=== PATIENT | female | born 1940 | race Caucasian/White ===

== ENCOUNTER 2022-06-14 17:39 | Inpatient (IN) | payer SELFPAY ==
[2022-06-14 17:58] VITALS: BMI 30.1
[2022-06-14 20:28] LABS: BASO % 0.6 % (0-2.0); EOS % 3.4 % (0-4.5); HEMATOCRIT 36.8 % (32.4-45.2); HEMOGLOBIN 12.2 GM/dL (10.7-15.3); LYMPH % 16.4 % (8-40); MCH 30.1 pg (25.7-33.7); MCHC 33.2 g/dl (32.0-36.0); MEAN CELL VOLUME 90.6 fl (80-96); MEAN PLT VOLUME 6.6 fl (7.5-11.1); MONO % 12.6 % (3.8-10.2); PLATELET COUNT 306 10^3/uL (134-434); RBC 4.07 M/mm3 (3.60-5.2); RDW 14.9 % (11.6-15.6); WHITE BLOOD COUNT 7.8 K/mm3 (4.0-10.0)
[2022-06-14 20:35] LABS: INR 0.95 (0.83-1.09); PROTHROMBIN TIME (PATIENT) 10.9 SEC (9.7-13.0)
[2022-06-14 20:37] LABS: ACTIVATED PTT 35.9 SECONDS (25.2-36.5)
[2022-06-14 20:49] LABS: CALCIUM 8.7 mg/dL (8.5-10.1)
[2022-06-14 20:50] LABS: ALBUMIN 3.6 g/dl (3.4-5.0)
[2022-06-14 20:52] LABS: PHOSPHOROUS 5.2 mg/dL (2.5-4.9)
[2022-06-14 20:53] LABS: CREATININE 5.2 mg/dL (0.55-1.3)
[2022-06-14 20:54] LABS: BILIRUBIN,TOTAL 0.3 mg/dL (0.2-1); TOT PROT 8.2 g/dl (6.4-8.2)
[2022-06-14] MEDS ORDERED: CALCIUM GLUC IN NACL, ISO-OSM 1 GM/50 ML BAG IVPB ONE ×2 (21:17→22:33)
[2022-06-14] MEDS ORDERED: SODIUM ZIRCONIUM CYCLOSILICATE (LOKELMA) 5 GM PACKET PO ONE (22:17)
[2022-06-14] MEDS ORDERED: SODIUM ZIRCONIUM CYCLOSILICATE (LOKELMA) 5 GM PACKET ONE (22:32)
[2022-06-15] MEDS ORDERED: SODIUM ZIRCONIUM CYCLOSILICATE (LOKELMA) 5 GM PACKET PO ONE ×2 (06:14→21:17)
[2022-06-15] MEDS ORDERED: HEPARIN NA (PORCINE) 5,000 UNITS/ML 1ML VIAL ONE (07:17)
[2022-06-15] MEDS ORDERED: SODIUM ZIRCONIUM CYCLOSILICATE (LOKELMA) 5 GM PACKET ONE (07:17)
[2022-06-15] MEDS: HEPARIN NA (PORCINE) 5,000 UNITS/ML 1ML VIAL SQ SCH ×3 (07:25→21:40)
[2022-06-15 07:50] LABS: HEMOGLOBIN 11.7 GM/dL (10.7-15.3); MCH 30.1 pg (25.7-33.7); MCHC 33.5 g/dl (32.0-36.0); MEAN CELL VOLUME 89.8 fl (80-96); MEAN PLT VOLUME 6.7 fl (7.5-11.1); PLATELET COUNT 293 10^3/uL (134-434); RDW 14.5 % (11.6-15.6); WHITE BLOOD COUNT 7.9 K/mm3 (4.0-10.0)
[2022-06-15] MEDS ORDERED: AMOX TR/POT CLAV 875MG/125MG TABLETS (FP) PO SCH ×2 (08:00→17:30)
[2022-06-15 08:20] LABS: BLOOD UREA NITROGEN 60.3 mg/dL (7-18); CALCIUM 8.2 mg/dL (8.5-10.1); MAGNESIUM 2.1 mg/dL (1.8-2.4)
[2022-06-15 08:22] LABS: ALBUMIN 3.3 g/dl (3.4-5.0)
[2022-06-15 08:24] LABS: CREATININE 5.3 mg/dL (0.55-1.3); PHOSPHOROUS 5.4 mg/dL (2.5-4.9)
[2022-06-15 08:26] LABS: BILIRUBIN,TOTAL 0.3 mg/dL (0.2-1); TOT PROT 7.5 g/dl (6.4-8.2)
[2022-06-15] MEDS ORDERED: NIFEdipine E.R 60 MG TABLET PO ONE (09:45)
[2022-06-15] MEDS ORDERED: NIFEdipine E.R 60 MG TABLET PO SCH ×2 (10:00→22:00)
[2022-06-15] MEDS ORDERED: ROSUVASTATIN CA 20 MG TABLET PO SCH (10:00)
[2022-06-15] MEDS ORDERED: NIFEdipine E.R 60 MG TABLET ONE (10:30)
[2022-06-15] MEDS ORDERED: INSULIN SLIDING SCALE (NOVOLOG) 1 VIAL SQ SCH (11:00)
[2022-06-15] MEDS ORDERED: BUDESONIDE/FORMETEROL FUMARATE 160/4.5 mcg INHALER IH SCH (11:00)
[2022-06-15 11:31] LABS: EPI CELLS >36 /uL (0-25.1); HYALINE CASTS 2 /uL (0-3.1); URINE APPEARANCE CLEAR; URINE BACTERIA 333 /uL (0-1359); URINE BILIRUBIN NEGATIVE (NEGATIVE); URINE COLOR YELLOW; URINE GLUCOSE (UA) NEGATIVE (NEGATIVE); URINE KETONE NEGATIVE (NEGATIVE); URINE LEUK ESTERASE 1+ (NEGATIVE); URINE NITRITE NEGATIVE (NEGATIVE); URINE PROTEIN 3+ (NEGATIVE); URINE RBC 5 /uL (0-23.9); URINE UROBILINOGEN 0.2 mg/dL (0.2-1.0); URINE WBC 61 /uL (0-25.8)
[2022-06-15] MEDS ORDERED: HEPARIN NA (PORCINE) 5,000 UNITS/ML 1ML VIAL IVPUSH ONE (15:38)
[2022-06-15] MEDS ORDERED: SODIUM CHLORIDE 250 ML IV PRN (15:58)
[2022-06-15] MEDS: INSULIN SLIDING SCALE (NOVOLOG) 1 VIAL SQ SCH ×2 (16:49→21:40)
[2022-06-15] MEDS: AMOX TR/POT CLAV 500MG/125MG TABLETS (FP) PO SCH (20:38)
[2022-06-15] MEDS: ROSUVASTATIN CA 5 MG TABLET PO SCH (21:39)
[2022-06-15] MEDS: BUDESONIDE/FORMETEROL FUMARATE 160/4.5 mcg INHALER IH SCH (21:41)
[2022-06-15] MEDS: NIFEdipine E.R 60 MG TABLET PO SCH (21:41)
[2022-06-15] MEDS ORDERED: DONEPEZIL HCL 10 MG TABLET (FP) PO SCH (22:00)
[2022-06-16] MEDS: HEPARIN NA (PORCINE) 5,000 UNITS/ML 1ML VIAL SQ SCH ×3 (05:38→21:43)
[2022-06-16 08:54] LABS: HEMATOCRIT 34.4 % (32.4-45.2); HEMOGLOBIN 11.7 GM/dL (10.7-15.3); MCH 30.4 pg (25.7-33.7); MCHC 34.1 g/dl (32.0-36.0); MEAN CELL VOLUME 89.2 fl (80-96); MEAN PLT VOLUME 6.7 fl (7.5-11.1); PLATELET COUNT 295 10^3/uL (134-434); RBC 3.86 M/mm3 (3.60-5.2); RDW 14.5 % (11.6-15.6); WHITE BLOOD COUNT 6.4 K/mm3 (4.0-10.0)
[2022-06-16 09:20] LABS: CALCIUM 8.3 mg/dL (8.5-10.1)
[2022-06-16 09:21] LABS: ALBUMIN 3.3 g/dl (3.4-5.0); MAGNESIUM 1.9 mg/dL (1.8-2.4)
[2022-06-16 09:24] LABS: CREATININE 4.2 mg/dL (0.55-1.3); PHOSPHOROUS 3.8 mg/dL (2.5-4.9)
[2022-06-16 09:26] LABS: BILIRUBIN,TOTAL 0.4 mg/dL (0.2-1); TOT PROT 7.7 g/dl (6.4-8.2)
[2022-06-16 09:35] LABS: BLOOD UREA NITROGEN 34.6 mg/dL (7-18)
[2022-06-16] MEDS ORDERED: ROSUVASTATIN CA 20 MG TABLET PO SCH (10:00)
[2022-06-16] MEDS: INSULIN SLIDING SCALE (NOVOLOG) 1 VIAL SQ SCH ×4 (10:58→21:42)
[2022-06-16] MEDS: NIFEdipine E.R 60 MG TABLET PO SCH ×2 (10:59→21:43)
[2022-06-16] MEDS: BUDESONIDE/FORMETEROL FUMARATE 160/4.5 mcg INHALER IH SCH ×2 (11:00→21:42)
[2022-06-16] MEDS: AMOX TR/POT CLAV 500MG/125MG TABLETS (FP) PO SCH (17:11)
[2022-06-16 19:28] VITALS: RESP 18
[2022-06-16] MEDS: ROSUVASTATIN CA 5 MG TABLET PO SCH (21:43)
[2022-06-17] MEDS: INSULIN SLIDING SCALE (NOVOLOG) 1 VIAL SQ SCH ×3 (06:49→17:17)
[2022-06-17] MEDS: HEPARIN NA (PORCINE) 5,000 UNITS/ML 1ML VIAL SQ SCH ×2 (06:52→15:37)
[2022-06-17] MEDS: BUDESONIDE/FORMETEROL FUMARATE 160/4.5 mcg INHALER IH SCH (09:30)
[2022-06-17] MEDS: NIFEdipine E.R 60 MG TABLET PO SCH (09:30)
[2022-06-17] MEDS ORDERED: SODIUM CHLORIDE 250 ML IV PRN (12:03)
[2022-06-17] MEDS: AMOX TR/POT CLAV 500MG/125MG TABLETS (FP) PO SCH (17:29)
[2022-06-17 18:39] VITALS: BP 132/74; PULSE 68; TEMP 97.9
== END 2022-06-17 18:17 | disposition home or self-care (01) | DRG 113 ==
LOC: JER 17:39 → JERBED 19:35 → OBSVTOIN 06-15 01:41 → J5S 06-15 14:46
PROVIDERS: ADMIT Internal Medicine; ATTEND Internal Medicine
PROC: 5A1D70Z Performance of Urinary Filtration, Intermittent, Less than 6 Hours Per Day (ICD-10-PCS; principal; 2022-06-15)
DX: J01.30 Acute sphenoidal sinusitis, unspecified (principal); R42 Dizziness and giddiness; F03.90 Unspecified dementia, unspecified severity, without behavioral disturbance, psychotic disturbance, mood disturbance, and anxiety; E83.39 Other disorders of phosphorus metabolism; E78.5 Hyperlipidemia, unspecified; E87.5 Hyperkalemia; I12.0 Hypertensive chronic kidney disease with stage 5 chronic kidney disease or end stage renal disease; E11.22 Type 2 diabetes mellitus with diabetic chronic kidney disease; N18.6 End stage renal disease; Z99.2 Dependence on renal dialysis
CPT/HCPCS: 0241U-QW; 36415; 70450-TC; 71045-TC-FY; 80053; 81003; 82962; 83735; 84100; 84484; 85025; 85027; 85610; 85730; 86803; 86850; 86900; 86901; 87086; 87340; 93005; 93010; 99285-25; G0378; J1644

== ENCOUNTER 2022-07-12 22:49 | Inpatient (IN) | payer SELFPAY ==
[2022-07-12 23:00] VITALS: BMI 31.8
[2022-07-12] MEDS ORDERED: methylPREDNISolone NA SUCC 125 MG/2 ML VIAL IM ONE (23:11)
[2022-07-12] MEDS ORDERED: NITROGLYCERIN 2% OINTMENT - 1GM PACKET TD ONE (23:22)
[2022-07-12] MEDS: ALBUTEROL SO4 2.5/IPRATROPIUM 0.5 INH SOL 3 ML VIAL.NEB. NEB SCH (23:28)
[2022-07-13] MEDS ORDERED: ALBUTEROL SO4 2.5/IPRATROPIUM 0.5 INH SOL 3 ML VIAL.NEB. NEB ONE ×2 (00:02→10:18)
[2022-07-13] MEDS ORDERED: NITROGLYCERIN 2% OINTMENT - 1GM PACKET TD ONE (00:02)
[2022-07-13] MEDS: ALBUTEROL SO4 2.5/IPRATROPIUM 0.5 INH SOL 3 ML VIAL.NEB. NEB SCH ×7 (00:08→21:20)
[2022-07-13 00:10] LABS: BASO % 0.3 % (0-2.0); EOS % 1.8 % (0-4.5); HEMATOCRIT 36.5 % (32.4-45.2); LYMPH % 20.7 % (8-40); MCH 31.2 pg (25.7-33.7); MCHC 32.9 g/dl (32.0-36.0); MEAN CELL VOLUME 94.9 fl (80-96); MEAN PLT VOLUME 7.1 fl (7.5-11.1); MONO % 9.3 % (3.8-10.2); NEUT % 67.9 % (42.8-82.8); PLATELET COUNT 357 10^3/uL (134-434); RBC 3.85 M/mm3 (3.60-5.2); RDW 16.1 % (11.6-15.6); WHITE BLOOD COUNT 17.3 K/mm3 (4.0-10.0)
[2022-07-13 00:23] LABS: INR 0.98 (0.83-1.09); PROTHROMBIN TIME (PATIENT) 11.3 SEC (9.7-13.0)
[2022-07-13 00:26] LABS: ACTIVATED PTT 37.7 SECONDS (25.2-36.5)
[2022-07-13 00:30] LABS: CALCIUM 7.9 mg/dL (8.5-10.1)
[2022-07-13 00:31] LABS: ALBUMIN 3.3 g/dl (3.4-5.0); BLOOD UREA NITROGEN 70.5 mg/dL (7-18); MAGNESIUM 2.2 mg/dL (1.8-2.4)
[2022-07-13 00:34] LABS: CREATININE 5.9 mg/dL (0.55-1.3); PHOSPHOROUS 5.2 mg/dL (2.5-4.9)
[2022-07-13 00:35] LABS: BILIRUBIN,TOTAL 0.4 mg/dL (0.2-1)
[2022-07-13 00:36] LABS: TOT PROT 8.4 g/dl (6.4-8.2)
[2022-07-13 00:39] LABS: N-TERMINAL BNP 11202.2 pg/ml (5-450)
[2022-07-13] MEDS ORDERED: HEPARIN NA (PORCINE) 5,000 UNITS/ML 1ML VIAL ONE (06:41)
[2022-07-13] MEDS: HEPARIN NA (PORCINE) 5,000 UNITS/ML 1ML VIAL SQ SCH ×3 (06:44→21:18)
[2022-07-13 06:50] LABS: HEMATOCRIT 33.1 % (32.4-45.2); HEMOGLOBIN 10.7 GM/dL (10.7-15.3); MCH 30.6 pg (25.7-33.7); MCHC 32.4 g/dl (32.0-36.0); MEAN CELL VOLUME 94.6 fl (80-96); PLATELET COUNT 284 10^3/uL (134-434); WHITE BLOOD COUNT 10.5 K/mm3 (4.0-10.0)
[2022-07-13 07:54] LABS: ALK PHOS 115 U/L (45-117); ANION GAP 10 MMOL/L (8-16); BILIRUBIN,TOTAL 0.3 mg/dL (0.2-1); BLOOD UREA NITROGEN 84.6 mg/dL (7-18); CALCIUM 7.6 mg/dL (8.5-10.1); CHLORIDE 106 mmol/L (98-107); CHOLESTEROL 103 mg/dL (50-200); CO2 24 mmol/L (21-32); CREATININE 6.3 mg/dL (0.55-1.3); GLUCOSE,RANDOM 233 mg/dL (74-106); HDL CHOLESTEROL 56 mg/dL (40-60); LDL CHOLESTEROL (ONLY SJRH) 41 mg/dL (5-100); MAGNESIUM 2.1 mg/dL (1.8-2.4); PHOSPHOROUS 5.6 mg/dL (2.5-4.9); SGOT/AST 21 U/L (15-37); SGPT/ALT 42 U/L (13-61); SODIUM 140 mmol/L (136-145); TOT PROT 7.6 g/dl (6.4-8.2); TRIGLYCERIDES 30 mg/dL (0-150)
[2022-07-13 08:37] LABS: ANISOCYTOSIS 1+; MACROCYTOSIS 0
[2022-07-13] MEDS ORDERED: SODIUM CHLORIDE 250 ML IV PRN (08:37)
[2022-07-13] MEDS: INSULIN SLIDING SCALE (NOVOLOG) 1 VIAL SQ SCH ×4 (10:15→21:35)
[2022-07-13] MEDS: ASPIRIN 81 MG CHEWABLE TABLETS PO SCH (14:30)
[2022-07-13] MEDS: ROSUVASTATIN CA 10 MG TABLET PO SCH (21:16)
[2022-07-14] MEDS: HEPARIN NA (PORCINE) 5,000 UNITS/ML 1ML VIAL SQ SCH ×3 (06:29→22:25)
[2022-07-14] MEDS: INSULIN SLIDING SCALE (NOVOLOG) 1 VIAL SQ SCH ×4 (06:30→22:27)
[2022-07-14] MEDS: ALBUTEROL SO4 2.5/IPRATROPIUM 0.5 INH SOL 3 ML VIAL.NEB. NEB SCH ×4 (08:30→20:55)
[2022-07-14] MEDS: ASPIRIN 81 MG CHEWABLE TABLETS PO SCH (09:26)
[2022-07-14] MEDS: NIFEdipine E.R 60 MG TABLET PO SCH (09:26)
[2022-07-14 11:23] LABS: BASO % 0.6 % (0-2.0); EOS % 0.8 % (0-4.5); HEMOGLOBIN 10.4 GM/dL (10.7-15.3); LYMPH % 13.2 % (8-40); MCH 30.3 pg (25.7-33.7); MCHC 32.6 g/dl (32.0-36.0); MEAN PLT VOLUME 6.8 fl (7.5-11.1); MONO % 12.3 % (3.8-10.2); NEUT % 73.1 % (42.8-82.8); PLATELET COUNT 279 10^3/uL (134-434); RBC 3.44 M/mm3 (3.60-5.2); RDW 15.6 % (11.6-15.6); WHITE BLOOD COUNT 9.5 K/mm3 (4.0-10.0)
[2022-07-14 11:47] LABS: ALBUMIN 2.9 g/dl (3.4-5.0); CALCIUM 7.9 mg/dL (8.5-10.1)
[2022-07-14 11:50] LABS: CREATININE 4.5 mg/dL (0.55-1.3); PHOSPHOROUS 4.4 mg/dL (2.5-4.9)
[2022-07-14 11:52] LABS: BILIRUBIN,TOTAL 0.3 mg/dL (0.2-1); TOT PROT 7.1 g/dl (6.4-8.2)
[2022-07-14 12:08] LABS: BLOOD UREA NITROGEN 56.5 mg/dL (7-18)
[2022-07-14] MEDS: ROSUVASTATIN CA 10 MG TABLET PO SCH (22:25)
[2022-07-15] MEDS: HEPARIN NA (PORCINE) 5,000 UNITS/ML 1ML VIAL SQ SCH ×3 (06:28→21:01)
[2022-07-15] MEDS: INSULIN SLIDING SCALE (NOVOLOG) 1 VIAL SQ SCH ×4 (06:29→21:01)
[2022-07-15] MEDS: ALBUTEROL SO4 2.5/IPRATROPIUM 0.5 INH SOL 3 ML VIAL.NEB. NEB SCH ×4 (07:25→20:11)
[2022-07-15 07:31] LABS: BASO % 0.6 % (0-2.0); EOS % 1.8 % (0-4.5); HEMOGLOBIN 9.9 GM/dL (10.7-15.3); LYMPH % 12.8 % (8-40); MCH 30.7 pg (25.7-33.7); MCHC 33.1 g/dl (32.0-36.0); MEAN CELL VOLUME 92.7 fl (80-96); MEAN PLT VOLUME 7.3 fl (7.5-11.1); MONO % 10.1 % (3.8-10.2); NEUT % 74.7 % (42.8-82.8); PLATELET COUNT 289 10^3/uL (134-434); RBC 3.24 M/mm3 (3.60-5.2); RDW 15.6 % (11.6-15.6); WHITE BLOOD COUNT 9.8 K/mm3 (4.0-10.0)
[2022-07-15 07:48] LABS: CALCIUM 7.3 mg/dL (8.5-10.1)
[2022-07-15 07:49] LABS: ALBUMIN 2.9 g/dl (3.4-5.0); BLOOD UREA NITROGEN 78.5 mg/dL (7-18); MAGNESIUM 2.1 mg/dL (1.8-2.4)
[2022-07-15 07:52] LABS: CREATININE 5.7 mg/dL (0.55-1.3); PHOSPHOROUS 4.6 mg/dL (2.5-4.9)
[2022-07-15 07:54] LABS: BILIRUBIN,TOTAL 0.5 mg/dL (0.2-1)
[2022-07-15 07:56] LABS: TOT PROT 6.8 g/dl (6.4-8.2)
[2022-07-15] MEDS: NIFEdipine E.R 60 MG TABLET PO SCH (09:29)
[2022-07-15] MEDS: ASPIRIN 81 MG CHEWABLE TABLETS PO SCH (09:29)
[2022-07-15] MEDS ORDERED: SODIUM CHLORIDE 250 ML IV PRN (11:48)
[2022-07-15] MEDS: ROSUVASTATIN CA 10 MG TABLET PO SCH (21:01)
[2022-07-16] MEDS: INSULIN SLIDING SCALE (NOVOLOG) 1 VIAL SQ SCH ×4 (06:23→21:17)
[2022-07-16] MEDS: HEPARIN NA (PORCINE) 5,000 UNITS/ML 1ML VIAL SQ SCH ×3 (06:24→21:12)
[2022-07-16 07:24] LABS: BASO % 0.4 % (0-2.0); EOS % 0.7 % (0-4.5); HEMATOCRIT 29.4 % (32.4-45.2); HEMOGLOBIN 10.1 GM/dL (10.7-15.3); LYMPH % 12.6 % (8-40); MCH 31.6 pg (25.7-33.7); MCHC 34.2 g/dl (32.0-36.0); MEAN CELL VOLUME 92.2 fl (80-96); MEAN PLT VOLUME 7.1 fl (7.5-11.1); MONO % 11.3 % (3.8-10.2); PLATELET COUNT 245 10^3/uL (134-434); RBC 3.19 M/mm3 (3.60-5.2); RDW 15.6 % (11.6-15.6); WHITE BLOOD COUNT 9.6 K/mm3 (4.0-10.0)
[2022-07-16 07:40] LABS: ALBUMIN 2.9 g/dl (3.4-5.0); BLOOD UREA NITROGEN 96.2 mg/dL (7-18)
[2022-07-16 07:41] LABS: CALCIUM 7.4 mg/dL (8.5-10.1)
[2022-07-16 07:43] LABS: CREATININE 6.6 mg/dL (0.55-1.3); PHOSPHOROUS 4.4 mg/dL (2.5-4.9)
[2022-07-16 07:44] LABS: BILIRUBIN,TOTAL 0.5 mg/dL (0.2-1); TOT PROT 6.9 g/dl (6.4-8.2)
[2022-07-16] MEDS: ALBUTEROL SO4 2.5/IPRATROPIUM 0.5 INH SOL 3 ML VIAL.NEB. NEB SCH ×4 (07:57→20:52)
[2022-07-16] MEDS: NIFEdipine E.R 60 MG TABLET PO SCH (10:04)
[2022-07-16] MEDS: ASPIRIN 81 MG CHEWABLE TABLETS PO SCH (10:04)
[2022-07-16] MEDS: ROSUVASTATIN CA 10 MG TABLET PO SCH (21:12)
[2022-07-17] MEDS: INSULIN SLIDING SCALE (NOVOLOG) 1 VIAL SQ SCH ×4 (06:19→22:15)
[2022-07-17] MEDS: HEPARIN NA (PORCINE) 5,000 UNITS/ML 1ML VIAL SQ SCH ×3 (06:19→22:15)
[2022-07-17 07:14] LABS: BASO % 0.9 % (0-2.0); EOS % 2.4 % (0-4.5); HEMATOCRIT 30.2 % (32.4-45.2); HEMOGLOBIN 10.4 GM/dL (10.7-15.3); LYMPH % 16.1 % (8-40); MCH 31.9 pg (25.7-33.7); MCHC 34.4 g/dl (32.0-36.0); MEAN CELL VOLUME 92.8 fl (80-96); MEAN PLT VOLUME 7.2 fl (7.5-11.1); MONO % 16.2 % (3.8-10.2); NEUT % 64.4 % (42.8-82.8); PLATELET COUNT 249 10^3/uL (134-434); RBC 3.25 M/mm3 (3.60-5.2); RDW 15.5 % (11.6-15.6); WHITE BLOOD COUNT 6.8 K/mm3 (4.0-10.0)
[2022-07-17 07:49] LABS: CALCIUM 8.2 mg/dL (8.5-10.1)
[2022-07-17 07:50] LABS: ALBUMIN 2.8 g/dl (3.4-5.0); MAGNESIUM 2.1 mg/dL (1.8-2.4)
[2022-07-17 07:53] LABS: CREATININE 4.1 mg/dL (0.55-1.3)
[2022-07-17 07:54] LABS: BILIRUBIN,TOTAL 0.6 mg/dL (0.2-1)
[2022-07-17 08:01] LABS: BLOOD UREA NITROGEN 39.6 mg/dL (7-18)
[2022-07-17] MEDS: ALBUTEROL SO4 2.5/IPRATROPIUM 0.5 INH SOL 3 ML VIAL.NEB. NEB SCH ×4 (08:15→20:42)
[2022-07-17] MEDS: NIFEdipine E.R 60 MG TABLET PO SCH (10:19)
[2022-07-17] MEDS: ASPIRIN 81 MG CHEWABLE TABLETS PO SCH (10:19)
[2022-07-17] MEDS ORDERED: SODIUM CHLORIDE 250 ML IV PRN (14:08)
[2022-07-17] MEDS: ROSUVASTATIN CA 10 MG TABLET PO SCH (22:14)
[2022-07-18] MEDS: HEPARIN NA (PORCINE) 5,000 UNITS/ML 1ML VIAL SQ SCH ×3 (06:42→22:38)
[2022-07-18] MEDS: INSULIN SLIDING SCALE (NOVOLOG) 1 VIAL SQ SCH ×4 (06:56→22:40)
[2022-07-18 07:42] LABS: HEMATOCRIT 31.1 % (32.4-45.2); HEMOGLOBIN 10.3 GM/dL (10.7-15.3); LYMPH % 21.1 % (8-40); MCH 30.8 pg (25.7-33.7); MCHC 33.1 g/dl (32.0-36.0); MEAN CELL VOLUME 93.2 fl (80-96); MEAN PLT VOLUME 7.4 fl (7.5-11.1); MONO % 17.1 % (3.8-10.2); NEUT % 55.8 % (42.8-82.8); PLATELET COUNT 276 10^3/uL (134-434); RBC 3.34 M/mm3 (3.60-5.2); RDW 15.1 % (11.6-15.6); WHITE BLOOD COUNT 5.7 K/mm3 (4.0-10.0)
[2022-07-18] MEDS: ALBUTEROL SO4 2.5/IPRATROPIUM 0.5 INH SOL 3 ML VIAL.NEB. NEB SCH ×4 (07:45→20:30)
[2022-07-18 08:11] LABS: ALBUMIN 2.7 g/dl (3.4-5.0); CALCIUM 8.2 mg/dL (8.5-10.1)
[2022-07-18 08:12] LABS: BLOOD UREA NITROGEN 60.8 mg/dL (7-18); MAGNESIUM 2.1 mg/dL (1.8-2.4)
[2022-07-18 08:15] LABS: PHOSPHOROUS 5.4 mg/dL (2.5-4.9)
[2022-07-18 08:16] LABS: BILIRUBIN,TOTAL 0.3 mg/dL (0.2-1); TOT PROT 6.9 g/dl (6.4-8.2)
[2022-07-18] MEDS: ASPIRIN 81 MG CHEWABLE TABLETS PO SCH (09:25)
[2022-07-18] MEDS: NIFEdipine E.R 60 MG TABLET PO SCH (09:25)
[2022-07-18] MEDS: CALCIUM ACETATE 667 MG CAPSULE (FP) PO SCH ×2 (12:03→17:14)
[2022-07-18] MEDS ORDERED: EPOETIN ALFA-EPBX 4,000 UNIT/ML VIAL SQ ONE (14:08)
[2022-07-18] MEDS ORDERED: EPOETIN ALFA-EPBX 3,000 UNIT, EPOETIN ALFA-EPBX 2,000 UNIT IVPUSH ONE (15:00)
[2022-07-18] MEDS: ROSUVASTATIN CA 10 MG TABLET PO SCH (22:38)
[2022-07-19] MEDS: INSULIN SLIDING SCALE (NOVOLOG) 1 VIAL SQ SCH ×4 (06:36→22:10)
[2022-07-19] MEDS: HEPARIN NA (PORCINE) 5,000 UNITS/ML 1ML VIAL SQ SCH ×3 (06:38→22:02)
[2022-07-19] MEDS: CALCIUM ACETATE 667 MG CAPSULE (FP) PO SCH ×3 (07:36→16:52)
[2022-07-19] MEDS: ALBUTEROL SO4 2.5/IPRATROPIUM 0.5 INH SOL 3 ML VIAL.NEB. NEB SCH ×4 (08:16→20:29)
[2022-07-19 09:05] LABS: BASO % 1.2 % (0-2.0); EOS % 4.5 % (0-4.5); HEMATOCRIT 33.1 % (32.4-45.2); HEMOGLOBIN 11.1 GM/dL (10.7-15.3); LYMPH % 23.3 % (8-40); MCH 30.7 pg (25.7-33.7); MCHC 33.4 g/dl (32.0-36.0); MEAN CELL VOLUME 91.7 fl (80-96); MEAN PLT VOLUME 7.3 fl (7.5-11.1); MONO % 17.7 % (3.8-10.2); NEUT % 53.3 % (42.8-82.8); PLATELET COUNT 309 10^3/uL (134-434); RBC 3.61 M/mm3 (3.60-5.2); RDW 14.6 % (11.6-15.6); WHITE BLOOD COUNT 5.5 K/mm3 (4.0-10.0)
[2022-07-19] MEDS: ASPIRIN 81 MG CHEWABLE TABLETS PO SCH (09:36)
[2022-07-19] MEDS: NIFEdipine E.R 60 MG TABLET PO SCH (09:36)
[2022-07-19 09:38] LABS: BILIRUBIN,TOTAL 0.3 mg/dL (0.2-1); CALCIUM 8.3 mg/dL (8.5-10.1); PHOSPHOROUS 3.9 mg/dL (2.5-4.9)
[2022-07-19 09:39] LABS: TOT PROT 7.3 g/dl (6.4-8.2)
[2022-07-19 09:41] LABS: CREATININE 4.3 mg/dL (0.55-1.3)
[2022-07-19 10:03] LABS: BLOOD UREA NITROGEN 32.9 mg/dL (7-18)
[2022-07-19] MEDS: ROSUVASTATIN CA 10 MG TABLET PO SCH (22:02)
[2022-07-20] MEDS: INSULIN SLIDING SCALE (NOVOLOG) 1 VIAL SQ SCH ×4 (06:44→22:30)
[2022-07-20] MEDS: ALBUTEROL SO4 2.5/IPRATROPIUM 0.5 INH SOL 3 ML VIAL.NEB. NEB SCH ×4 (08:05→19:53)
[2022-07-20 08:14] LABS: EOS % 4.6 % (0-4.5); HEMATOCRIT 32.7 % (32.4-45.2); HEMOGLOBIN 11.1 GM/dL (10.7-15.3); LYMPH % 19.7 % (8-40); MCH 31.3 pg (25.7-33.7); MCHC 34.1 g/dl (32.0-36.0); MEAN PLT VOLUME 6.9 fl (7.5-11.1); MONO % 16.9 % (3.8-10.2); NEUT % 57.8 % (42.8-82.8); PLATELET COUNT 290 10^3/uL (134-434); RBC 3.55 M/mm3 (3.60-5.2); RDW 14.8 % (11.6-15.6); WHITE BLOOD COUNT 6.2 K/mm3 (4.0-10.0)
[2022-07-20 08:45] LABS: MAGNESIUM 1.9 mg/dL (1.8-2.4)
[2022-07-20 08:47] LABS: CREATININE 6.4 mg/dL (0.55-1.3); PHOSPHOROUS 4.1 mg/dL (2.5-4.9)
[2022-07-20 08:49] LABS: BILIRUBIN,TOTAL 0.3 mg/dL (0.2-1); TOT PROT 7.2 g/dl (6.4-8.2)
[2022-07-20 08:51] LABS: BLOOD UREA NITROGEN 58.6 mg/dL (7-18)
[2022-07-20] MEDS ORDERED: EPOETIN ALFA-EPBX 2,000 UNIT/ML VIAL IVPUSH ONE (09:00)
[2022-07-20] MEDS ORDERED: SODIUM CHLORIDE 250 ML IV PRN (09:00)
[2022-07-20] MEDS: CALCIUM ACETATE 667 MG CAPSULE (FP) PO SCH ×3 (09:15→17:31)
[2022-07-20] MEDS: NIFEdipine E.R 60 MG TABLET PO SCH (14:41)
[2022-07-20] MEDS: ASPIRIN 81 MG CHEWABLE TABLETS PO SCH (14:41)
[2022-07-20] MEDS: ROSUVASTATIN CA 10 MG TABLET PO SCH (21:50)
[2022-07-21] MEDS: INSULIN SLIDING SCALE (NOVOLOG) 1 VIAL SQ SCH ×4 (06:43→21:39)
[2022-07-21] MEDS: ALBUTEROL SO4 2.5/IPRATROPIUM 0.5 INH SOL 3 ML VIAL.NEB. NEB SCH ×4 (08:01→20:10)
[2022-07-21] MEDS: CALCIUM ACETATE 667 MG CAPSULE (FP) PO SCH ×3 (08:12→17:43)
[2022-07-21 09:14] LABS: EOS % 3.7 % (0-4.5); HEMATOCRIT 34.7 % (32.4-45.2); HEMOGLOBIN 11.6 GM/dL (10.7-15.3); LYMPH % 24.4 % (8-40); MCH 30.8 pg (25.7-33.7); MCHC 33.4 g/dl (32.0-36.0); MEAN CELL VOLUME 92.1 fl (80-96); MEAN PLT VOLUME 7.1 fl (7.5-11.1); NEUT % 55.9 % (42.8-82.8); PLATELET COUNT 329 10^3/uL (134-434); RBC 3.77 M/mm3 (3.60-5.2); RDW 14.7 % (11.6-15.6); WHITE BLOOD COUNT 7.3 K/mm3 (4.0-10.0)
[2022-07-21 09:58] LABS: CALCIUM 8.5 mg/dL (8.5-10.1); MAGNESIUM 1.7 mg/dL (1.8-2.4)
[2022-07-21 10:00] LABS: ALBUMIN 3.2 g/dl (3.4-5.0); BLOOD UREA NITROGEN 39.5 mg/dL (7-18)
[2022-07-21 10:01] LABS: CREATININE 5.1 mg/dL (0.55-1.3)
[2022-07-21 10:02] LABS: BILIRUBIN,TOTAL 0.4 mg/dL (0.2-1)
[2022-07-21 10:04] LABS: PHOSPHOROUS 4.2 mg/dL (2.5-4.9)
[2022-07-21] MEDS: NIFEdipine E.R 60 MG TABLET PO SCH (10:14)
[2022-07-21] MEDS: ASPIRIN 81 MG CHEWABLE TABLETS PO SCH (10:14)
[2022-07-21] MEDS: ROSUVASTATIN CA 10 MG TABLET PO SCH (21:38)
[2022-07-22] MEDS: INSULIN SLIDING SCALE (NOVOLOG) 1 VIAL SQ SCH ×4 (06:49→21:57)
[2022-07-22] MEDS: CALCIUM ACETATE 667 MG CAPSULE (FP) PO SCH ×3 (08:24→17:18)
[2022-07-22 08:43] LABS: BASO % 0.6 % (0-2.0); EOS % 4.1 % (0-4.5); HEMOGLOBIN 11.3 GM/dL (10.7-15.3); LYMPH % 16.2 % (8-40); MCHC 33.2 g/dl (32.0-36.0); MEAN CELL VOLUME 93.3 fl (80-96); MEAN PLT VOLUME 6.7 fl (7.5-11.1); MONO % 13.1 % (3.8-10.2); PLATELET COUNT 322 10^3/uL (134-434); RBC 3.64 M/mm3 (3.60-5.2); RDW 14.8 % (11.6-15.6)
[2022-07-22 09:00] LABS: BLOOD UREA NITROGEN 58.5 mg/dL (7-18); CALCIUM 8.3 mg/dL (8.5-10.1); MAGNESIUM 2.1 mg/dL (1.8-2.4)
[2022-07-22 09:03] LABS: CREATININE 6.8 mg/dL (0.55-1.3); PHOSPHOROUS 5.3 mg/dL (2.5-4.9)
[2022-07-22 09:04] LABS: BILIRUBIN,TOTAL 0.3 mg/dL (0.2-1); TOT PROT 7.4 g/dl (6.4-8.2)
[2022-07-22] MEDS: ASPIRIN 81 MG CHEWABLE TABLETS PO SCH (10:18)
[2022-07-22] MEDS: NIFEdipine E.R 60 MG TABLET PO SCH (10:18)
[2022-07-22] MEDS: ROSUVASTATIN CA 10 MG TABLET PO SCH (21:57)
[2022-07-23] MEDS: INSULIN SLIDING SCALE (NOVOLOG) 1 VIAL SQ SCH ×3 (06:02→16:35)
[2022-07-23] MEDS ORDERED: SODIUM CHLORIDE 250 ML IV PRN (10:00)
[2022-07-23] MEDS: NIFEdipine E.R 60 MG TABLET PO SCH (10:32)
[2022-07-23] MEDS: ASPIRIN 81 MG CHEWABLE TABLETS PO SCH (10:32)
[2022-07-23] MEDS: CALCIUM ACETATE 667 MG CAPSULE (FP) PO SCH ×3 (10:32→16:37)
[2022-07-23 10:48] VITALS: RESP 18
[2022-07-23 11:17] LABS: HEMATOCRIT 33.5 % (32.4-45.2); HEMOGLOBIN 11.4 GM/dL (10.7-15.3); MCH 31.3 pg (25.7-33.7); MCHC 34.1 g/dl (32.0-36.0); MEAN CELL VOLUME 91.8 fl (80-96); MEAN PLT VOLUME 6.5 fl (7.5-11.1); PLATELET COUNT 360 10^3/uL (134-434); RBC 3.65 M/mm3 (3.60-5.2); RDW 15.2 % (11.6-15.6); WHITE BLOOD COUNT 8.6 K/mm3 (4.0-10.0)
[2022-07-23 11:35] LABS: CHLORIDE 101 mmol/L (98-107); SODIUM 138 mmol/L (136-145)
[2022-07-23 11:37] LABS: CALCIUM 8.4 mg/dL (8.5-10.1)
[2022-07-23 11:38] LABS: ANION GAP 11 MMOL/L (8-16); BLOOD UREA NITROGEN 75.7 mg/dL (7-18); CO2 26 mmol/L (21-32); GLUCOSE,RANDOM 135 mg/dL (74-106)
[2022-07-23 11:42] LABS: CREATININE 8.2 mg/dL (0.55-1.3)
[2022-07-23 14:38] VITALS: BP 144/63; PULSE 65
[2022-07-23 15:20] VITALS: TEMP 97.7
== END 2022-07-23 17:31 | disposition home or self-care (01) | DRG 194 ==
LOC: JER 22:49 → JERBED 07-13 01:14 → J4W 07-13 16:49
PROVIDERS: ADMIT Internal Medicine; ATTEND Internal Medicine
PROC: 5A1D70Z Performance of Urinary Filtration, Intermittent, Less than 6 Hours Per Day (ICD-10-PCS; principal; 2022-07-13)
PROC: 5A1D70Z Performance of Urinary Filtration, Intermittent, Less than 6 Hours Per Day (ICD-10-PCS; 2022-07-16)
PROC: 5A1D70Z Performance of Urinary Filtration, Intermittent, Less than 6 Hours Per Day (ICD-10-PCS; 2022-07-18)
PROC: 5A1D70Z Performance of Urinary Filtration, Intermittent, Less than 6 Hours Per Day (ICD-10-PCS; 2022-07-20)
PROC: 5A1D70Z Performance of Urinary Filtration, Intermittent, Less than 6 Hours Per Day (ICD-10-PCS; 2022-07-23)
DX: I13.2 Hypertensive heart and chronic kidney disease with heart failure and with stage 5 chronic kidney disease, or end stage renal disease (principal); I50.33 Acute on chronic diastolic (congestive) heart failure; E78.5 Hyperlipidemia, unspecified; K21.9 Gastro-esophageal reflux disease without esophagitis; F03.90 Unspecified dementia, unspecified severity, without behavioral disturbance, psychotic disturbance, mood disturbance, and anxiety; R55 Syncope and collapse; J96.01 Acute respiratory failure with hypoxia; E87.5 Hyperkalemia; D64.9 Anemia, unspecified; E83.39 Other disorders of phosphorus metabolism; R77.8 Other specified abnormalities of plasma proteins; E66.9 Obesity, unspecified; Z68.28 Body mass index [BMI] 28.0-28.9, adult; I24.8 Other forms of acute ischemic heart disease; E87.70 Fluid overload, unspecified; N18.6 End stage renal disease; E11.22 Type 2 diabetes mellitus with diabetic chronic kidney disease; Z99.2 Dependence on renal dialysis
CPT/HCPCS: 0241U-QW; 36415; 71045-TC-FY; 71275-TC; 80048; 80053; 80061; 82550; 82962; 83605; 83735; 83880; 84100; 84443; 84484; 85025; 85027; 85379; 85610; 85730; 86803; 86850; 86900; 86901; 87040; 87340; 93005; 93010; 93306-TC; 93970-TC; 94640; 94660; 94761; 99291; 99292; J1644; Q5106; Q9967

== ENCOUNTER 2022-10-07 03:25 | Inpatient (IN) | payer SELFPAY ==
[2022-10-07 03:46] VITALS: BMI 36.6
[2022-10-07] MEDS ORDERED: methylPREDNISolone NA SUCC 125 MG/2 ML VIAL IVPUSH ONE (03:46)
[2022-10-07] MEDS ORDERED: methylPREDNISolone NA SUCC 125 MG/2 ML VIAL ONE (03:50)
[2022-10-07] MEDS: ALBUTEROL SO4 2.5/IPRATROPIUM 0.5 INH SOL 3 ML VIAL.NEB. NEB SCH ×4 (04:03→08:23)
[2022-10-07 04:31] LABS: VENOUS BASE EXCESS -4.5 mmol/L (-2-2); VENOUS O2 SATURATION 71.5 % (70-80); VENOUS PCO2 64.5 mmHg (38-52); VENOUS PH 7.202 (7.310-7.410)
[2022-10-07 04:53] LABS: BASO % 0.6 % (0-2.0); EOS % 1.7 % (0-4.5); HEMATOCRIT 41.5 % (32.4-45.2); HEMOGLOBIN 13.2 GM/dL (10.7-15.3); LYMPH % 12.5 % (8-40); MCH 29.9 pg (25.7-33.7); MCHC 31.9 g/dl (32.0-36.0); MEAN CELL VOLUME 93.6 fl (80-96); MEAN PLT VOLUME 7.7 fl (7.5-11.1); MONO % 7.8 % (3.8-10.2); NEUT % 77.4 % (42.8-82.8); PLATELET COUNT 246 10^3/uL (134-434); RBC 4.43 M/mm3 (3.60-5.2); RDW 14.6 % (11.6-15.6)
[2022-10-07 04:54] LABS: ALBUMIN 3.4 g/dl (3.4-5.0); CALCIUM 9.1 mg/dL (8.5-10.1); MAGNESIUM 2.2 mg/dL (1.8-2.4)
[2022-10-07 04:57] LABS: CREATININE 5.1 mg/dL (0.55-1.3); PHOSPHOROUS 5.9 mg/dL (2.5-4.9)
[2022-10-07 04:59] LABS: BILIRUBIN,TOTAL 0.3 mg/dL (0.2-1); TOT PROT 8.1 g/dl (6.4-8.2)
[2022-10-07] MEDS ORDERED: ALBUTEROL SO4 2.5/IPRATROPIUM 0.5 INH SOL 3 ML VIAL.NEB. NEB ONE ×2 (06:10→08:18)
[2022-10-07] MEDS ORDERED: FUROSEMIDE 40 MG/4 ML INJECTABLE VIAL IVPUSH ONE (08:14)
[2022-10-07] MEDS ORDERED: FUROSEMIDE 40 MG/4 ML INJECTABLE VIAL ONE (08:18)
[2022-10-07] MEDS ORDERED: VANCOMYCIN 1 GM in D5W (PRE-DOCKED) 1,000 MG/250 ML IVPB ONE (08:34)
[2022-10-07] MEDS ORDERED: AZITHROMYCIN IVPB 500 MG in DEXTROSE 5%-WATER - 250 ML IVPB ONE (08:34)
[2022-10-07] MEDS ORDERED: CEFEPIME HCL/D5W 1 GM/50 ML BAG IVPB ONE (08:35)
[2022-10-07] MEDS ORDERED: VANCOMYCIN/WATER FOR INJ (PEG) 1,000 MG/200 ML BAG IVPB ONE (08:39)
[2022-10-07] MEDS ORDERED: ALBUTEROL SO4 2.5/IPRATROPIUM 0.5 INH SOL 3 ML VIAL.NEB. NEB PRN (08:39)
[2022-10-07] MEDS ORDERED: CEFEPIME 1 GM/100 ML BAG IVPB ONE (08:40)
[2022-10-07 08:45] LABS: CHLORIDE 103 mmol/L (98-107); SODIUM 140 mmol/L (136-145)
[2022-10-07 08:47] LABS: CALCIUM 8.9 mg/dL (8.5-10.1); CO2 27 mmol/L (21-32); GLUCOSE,RANDOM 234 mg/dL (74-106)
[2022-10-07 08:50] LABS: CREATININE 5.2 mg/dL (0.55-1.3)
[2022-10-07 09:04] LABS: ANION GAP 9 MMOL/L (8-16)
[2022-10-07] MEDS: NIFEdipine E.R 60 MG TABLET PO SCH (09:05)
[2022-10-07] MEDS ORDERED: CALCIUM GLUCONATE 10% - 1,000 MG/10 ML VIAL IVPB ONE (09:47)
[2022-10-07] MEDS ORDERED: SODIUM ZIRCONIUM CYCLOSILICATE (LOKELMA) 5 GM PACKET PO ONE (09:51)
[2022-10-07] MEDS ORDERED: CALCIUM GLUCONATE 10% - 1,000 MG/10 ML VIAL ONE (09:52)
[2022-10-07] MEDS ORDERED: INSULIN (LEVEMIR) 100 UNITS/ML UNITS SQ SCH (10:00)
[2022-10-07] MEDS ORDERED: SODIUM ZIRCONIUM CYCLOSILICATE (LOKELMA) 5 GM PACKET ONE ×2 (10:23→11:38)
[2022-10-07] MEDS: INSULIN (NOVOLOG) ASPART 100 UNITS/ML 10ML VIAL SQ SCH ×2 (10:31→16:32)
[2022-10-07 10:42] LABS: CHLORIDE 107 mmol/L (98-107); SODIUM 138 mmol/L (136-145)
[2022-10-07 10:43] LABS: CALCIUM 8.5 mg/dL (8.5-10.1)
[2022-10-07 10:44] LABS: BLOOD UREA NITROGEN 63.6 mg/dL (7-18); CO2 23 mmol/L (21-32); GLUCOSE,RANDOM 236 mg/dL (74-106)
[2022-10-07 10:47] LABS: CREATININE 5.3 mg/dL (0.55-1.3)
[2022-10-07 10:50] LABS: ANION GAP 8 MMOL/L (8-16)
[2022-10-07] MEDS ORDERED: SODIUM CHLORIDE 250 ML IV PRN (10:56)
[2022-10-07 13:04] LABS: BLOOD UREA NITROGEN 50.1 mg/dL (7-18); CALCIUM 8.8 mg/dL (8.5-10.1)
[2022-10-07 13:08] LABS: CREATININE 4.1 mg/dL (0.55-1.3)
[2022-10-07 15:57] LABS: BLOOD UREA NITROGEN 18.9 mg/dL (7-18); CREATININE 1.9 mg/dL (0.55-1.3)
[2022-10-08] MEDS ORDERED: NIFEdipine E.R 60 MG TABLET ONE (01:02)
[2022-10-08] MEDS: NIFEdipine E.R 60 MG TABLET PO SCH ×2 (01:05→21:28)
[2022-10-08] MEDS ORDERED: SODIUM CHLORIDE 250 ML IV PRN (07:56)
[2022-10-08] MEDS ORDERED: AZITHROMYCIN IVPB 500 MG/250 ML BAG IVPB SCH (10:00)
[2022-10-08] MEDS ORDERED: CEFEPIME 0.5 GM in DEXTROSE 5%-WATER - 100 ML IVPB SCH (10:00)
[2022-10-08 13:57] LABS: HEMOGLOBIN 12.9 GM/dL (10.7-15.3); MCH 29.7 pg (25.7-33.7); MCHC 32.3 g/dl (32.0-36.0); MEAN PLT VOLUME 7.8 fl (7.5-11.1); PLATELET COUNT 234 10^3/uL (134-434); RBC 4.34 M/mm3 (3.60-5.2); RDW 14.7 % (11.6-15.6); WHITE BLOOD COUNT 8.7 K/mm3 (4.0-10.0)
[2022-10-08 14:28] LABS: CALCIUM 8.9 mg/dL (8.5-10.1)
[2022-10-08 14:33] LABS: BLOOD UREA NITROGEN 48.8 mg/dL (7-18); CREATININE 4.6 mg/dL (0.55-1.3)
[2022-10-08] MEDS: HEPARIN NA (PORCINE) 5,000 UNITS/ML 1ML VIAL SQ SCH (21:29)
[2022-10-09] MEDS: HEPARIN NA (PORCINE) 5,000 UNITS/ML 1ML VIAL SQ SCH ×2 (06:05→14:50)
[2022-10-09] MEDS: INSULIN (NOVOLOG) ASPART 100 UNITS/ML 10ML VIAL SQ SCH ×3 (06:22→17:01)
[2022-10-09] MEDS ORDERED: CEFTRIAXONE 1 GM in DEXTROSE 5%-WATER - 50 ML IVPB SCH (10:00)
[2022-10-09] MEDS: NIFEdipine E.R 60 MG TABLET PO SCH ×2 (10:06→10:15)
[2022-10-09 10:11] VITALS: RESP 18
[2022-10-09] MEDS: INSULIN (LEVEMIR) 100 UNITS/ML UNITS SQ SCH ×2 (11:02→11:03)
[2022-10-09 14:25] VITALS: BP 138/62; PULSE 65; TEMP 98.7
[2022-10-09] MEDS ORDERED: SODIUM CHLORIDE 250 ML IV PRN (14:42)
[2022-10-09] MEDS ORDERED: NIFEdipine E.R. 30 MG TABLET PO SCH (17:09)
[2022-10-09] MEDS ORDERED: DONEPEZIL HCL 10 MG TABLET (FP) PO SCH (22:00)
[2022-10-10] MEDS ORDERED: HEPARIN NA (PORCINE) 5,000 UNITS/ML 1ML VIAL IVPUSH ONE (14:42)
== END 2022-10-09 19:49 | disposition home or self-care (01) | DRG 194 ==
LOC: JER 03:25 → JERBED 08:28 → J6S 10-08 18:41
PROVIDERS: ADMIT Internal Medicine; ATTEND Internal Medicine
PROC: 5A1D70Z Performance of Urinary Filtration, Intermittent, Less than 6 Hours Per Day (ICD-10-PCS; principal; 2022-10-07)
PROC: 5A1D70Z Performance of Urinary Filtration, Intermittent, Less than 6 Hours Per Day (ICD-10-PCS; 2022-10-08)
DX: I13.2 Hypertensive heart and chronic kidney disease with heart failure and with stage 5 chronic kidney disease, or end stage renal disease (principal); J44.1 Chronic obstructive pulmonary disease with (acute) exacerbation; F03.90 Unspecified dementia, unspecified severity, without behavioral disturbance, psychotic disturbance, mood disturbance, and anxiety; J96.01 Acute respiratory failure with hypoxia; J96.02 Acute respiratory failure with hypercapnia; J12.1 Respiratory syncytial virus pneumonia; E87.5 Hyperkalemia; N18.6 End stage renal disease; I50.33 Acute on chronic diastolic (congestive) heart failure; J81.1 Chronic pulmonary edema; E11.65 Type 2 diabetes mellitus with hyperglycemia; E11.22 Type 2 diabetes mellitus with diabetic chronic kidney disease; Z99.2 Dependence on renal dialysis
CPT/HCPCS: 0241U-QW; 36415; 71045-TC-FY; 80048; 80053; 82803; 82962; 83735; 83880; 84100; 84484; 85025; 85027; 86803; 87340; 93005; 93010; 94660; 99285-25; C9803-CS; J1644; U0003; U0005

== ENCOUNTER 2022-10-29 00:37 | Inpatient (IN) | payer OTHER ==
[2022-10-29] MEDS ORDERED: ALBUTEROL SO4 0.083% IH SOL 2.5 MG/3 ML VIAL.NEB. NEB ONE (00:45)
[2022-10-29] MEDS ORDERED: FUROSEMIDE 40 MG/4 ML INJECTABLE VIAL IVPUSH ONE (01:35)
[2022-10-29 02:48] LABS: BASO % 0.4 % (0-2.0); EOS % 1.7 % (0-4.5); HEMATOCRIT 35.8 % (32.4-45.2); HEMOGLOBIN 11.2 GM/dL (10.7-15.3); LYMPH % 11.8 % (8-40); MCH 28.9 pg (25.7-33.7); MCHC 31.2 g/dl (32.0-36.0); MEAN CELL VOLUME 92.7 fl (80-96); MONO % 7.3 % (3.8-10.2); NEUT % 78.8 % (42.8-82.8); PLATELET COUNT 213 10^3/uL (134-434); RBC 3.86 M/mm3 (3.60-5.2); RDW 14.7 % (11.6-15.6); WHITE BLOOD COUNT 10.1 K/mm3 (4.0-10.0)
[2022-10-29] MEDS ORDERED: FUROSEMIDE 40 MG/4 ML INJECTABLE VIAL ONE (03:06)
[2022-10-29 03:11] LABS: ALBUMIN 3.2 g/dl (3.4-5.0); BLOOD UREA NITROGEN 67.2 mg/dL (7-18); CALCIUM 9.1 mg/dL (8.5-10.1)
[2022-10-29 03:14] LABS: CREATININE 6.5 mg/dL (0.55-1.3)
[2022-10-29 03:16] LABS: BILIRUBIN,TOTAL 0.3 mg/dL (0.2-1); TOT PROT 7.2 g/dl (6.4-8.2)
[2022-10-29] MEDS ORDERED: INSULIN REGULAR HUMAN 100 UNITS/ML *VIAL IVPUSH ONE (03:44)
[2022-10-29] MEDS ORDERED: AZITHROMYCIN IVPB 500 MG in DEXTROSE 5%-WATER - 250 ML IVPB ONE (03:58)
[2022-10-29] MEDS ORDERED: AZITHROMYCIN IVPB 500 MG/250 ML BAG IVPB ONE (04:55)
[2022-10-29 10:28] VITALS: BMI 32.1
[2022-10-29] MEDS ORDERED: ACETAMINOPHEN 325 MG TABLET (FP) PO PRN (11:59)
[2022-10-29] MEDS ORDERED: SODIUM CHLORIDE 250 ML IV PRN (20:42)
[2022-10-29] MEDS ORDERED: HEPARIN NA (PORCINE) 5,000 UNITS/ML 1ML VIAL IVPUSH ONE (20:45)
[2022-10-29] MEDS: DONEPEZIL HCL 10 MG TABLET (FP) PO SCH (23:33)
[2022-10-29] MEDS: NIFEdipine E.R 60 MG TABLET PO SCH (23:33)
[2022-10-29] MEDS: ROSUVASTATIN CA 10 MG TABLET PO SCH (23:33)
[2022-10-29] MEDS: HEPARIN NA (PORCINE) 5,000 UNITS/ML 1ML VIAL SQ SCH (23:34)
[2022-10-30] MEDS: INSULIN (LEVEMIR) 100 UNITS/ML UNITS SQ SCH (06:43)
[2022-10-30] MEDS: HEPARIN NA (PORCINE) 5,000 UNITS/ML 1ML VIAL SQ SCH ×2 (10:16→21:38)
[2022-10-30] MEDS: NIFEdipine E.R 60 MG TABLET PO SCH (10:17)
[2022-10-30] MEDS: GABAPENTIN 100 MG CAPSULE PO SCH (10:17)
[2022-10-30 10:21] LABS: HEMATOCRIT 33.9 % (32.4-45.2); HEMOGLOBIN 10.8 GM/dL (10.7-15.3); MCH 29.1 pg (25.7-33.7); MCHC 31.8 g/dl (32.0-36.0); MEAN CELL VOLUME 91.3 fl (80-96); MEAN PLT VOLUME 7.2 fl (7.5-11.1); PLATELET COUNT 208 10^3/uL (134-434); RBC 3.72 M/mm3 (3.60-5.2); RDW 14.7 % (11.6-15.6); WHITE BLOOD COUNT 6.6 K/mm3 (4.0-10.0)
[2022-10-30 10:50] LABS: MAGNESIUM 1.9 mg/dL (1.8-2.4)
[2022-10-30 10:52] LABS: ALBUMIN 2.8 g/dl (3.4-5.0); CALCIUM 8.2 mg/dL (8.5-10.1)
[2022-10-30 10:53] LABS: CREATININE 5.1 mg/dL (0.55-1.3)
[2022-10-30 10:54] LABS: PHOSPHOROUS 2.9 mg/dL (2.5-4.9); TOT PROT 7.1 g/dl (6.4-8.2)
[2022-10-30 10:56] LABS: BILIRUBIN,TOTAL 0.3 mg/dL (0.2-1)
[2022-10-30 11:03] LABS: BLOOD UREA NITROGEN 38.7 mg/dL (7-18)
[2022-10-30] MEDS ORDERED: SODIUM CHLORIDE 250 ML IV PRN (14:13)
[2022-10-30] MEDS: ROSUVASTATIN CA 10 MG TABLET PO SCH (21:38)
[2022-10-30] MEDS: DONEPEZIL HCL 10 MG TABLET (FP) PO SCH (21:38)
[2022-10-31] MEDS: INSULIN SLIDING SCALE (NOVOLOG) 1 VIAL SQ SCH ×4 (06:48→23:57)
[2022-10-31] MEDS: INSULIN (LEVEMIR) 100 UNITS/ML UNITS SQ SCH (06:48)
[2022-10-31] MEDS ORDERED: HEPARIN NA (PORCINE) 5,000 UNITS/ML 1ML VIAL IVPUSH ONE (08:00)
[2022-10-31] MEDS ORDERED: EPOETIN ALFA-EPBX 2,000 UNIT/ML VIAL IVPUSH ONE (08:00)
[2022-10-31] MEDS: HEPARIN NA (PORCINE) 5,000 UNITS/ML 1ML VIAL SQ SCH ×2 (11:32→21:54)
[2022-10-31] MEDS: NIFEdipine E.R 60 MG TABLET PO SCH (11:32)
[2022-10-31] MEDS: GABAPENTIN 100 MG CAPSULE PO SCH (11:32)
[2022-10-31 13:23] LABS: HEMATOCRIT 33.8 % (32.4-45.2); HEMOGLOBIN 10.8 GM/dL (10.7-15.3); MCH 29.4 pg (25.7-33.7); MCHC 32.1 g/dl (32.0-36.0); MEAN CELL VOLUME 91.7 fl (80-96); MEAN PLT VOLUME 7.3 fl (7.5-11.1); PLATELET COUNT 211 10^3/uL (134-434); RBC 3.68 M/mm3 (3.60-5.2); RDW 14.7 % (11.6-15.6); WHITE BLOOD COUNT 10.2 K/mm3 (4.0-10.0)
[2022-10-31 13:56] LABS: CALCIUM 8.1 mg/dL (8.5-10.1); MAGNESIUM 2.2 mg/dL (1.8-2.4)
[2022-10-31 13:58] LABS: BLOOD UREA NITROGEN 60.8 mg/dL (7-18)
[2022-10-31 14:00] LABS: CREATININE 6.6 mg/dL (0.55-1.3)
[2022-10-31] MEDS: DONEPEZIL HCL 10 MG TABLET (FP) PO SCH (21:54)
[2022-10-31] MEDS: ROSUVASTATIN CA 10 MG TABLET PO SCH (21:54)
[2022-11-01] MEDS: INSULIN SLIDING SCALE (NOVOLOG) 1 VIAL SQ SCH ×4 (06:26→22:20)
[2022-11-01] MEDS: INSULIN (LEVEMIR) 100 UNITS/ML UNITS SQ SCH (06:27)
[2022-11-01 09:02] LABS: HEMATOCRIT 37.6 % (32.4-45.2); MCH 29.2 pg (25.7-33.7); MCHC 31.9 g/dl (32.0-36.0); MEAN CELL VOLUME 91.6 fl (80-96); MEAN PLT VOLUME 7.2 fl (7.5-11.1); PLATELET COUNT 239 10^3/uL (134-434); RDW 14.5 % (11.6-15.6); WHITE BLOOD COUNT 9.6 K/mm3 (4.0-10.0)
[2022-11-01 09:27] LABS: CALCIUM 8.6 mg/dL (8.5-10.1)
[2022-11-01 09:29] LABS: CREATININE 4.6 mg/dL (0.55-1.3)
[2022-11-01 09:58] LABS: BLOOD UREA NITROGEN 32.5 mg/dL (7-18)
[2022-11-01] MEDS: GABAPENTIN 100 MG CAPSULE PO SCH (10:43)
[2022-11-01] MEDS: HEPARIN NA (PORCINE) 5,000 UNITS/ML 1ML VIAL SQ SCH ×2 (10:43→22:15)
[2022-11-01] MEDS: NIFEdipine E.R 60 MG TABLET PO SCH (10:43)
[2022-11-01] MEDS ORDERED: SODIUM CHLORIDE 250 ML IV PRN (16:25)
[2022-11-01] MEDS: ROSUVASTATIN CA 10 MG TABLET PO SCH (22:15)
[2022-11-01] MEDS: DONEPEZIL HCL 10 MG TABLET (FP) PO SCH (22:15)
[2022-11-02] MEDS: INSULIN (LEVEMIR) 100 UNITS/ML UNITS SQ SCH (06:09)
[2022-11-02] MEDS: INSULIN SLIDING SCALE (NOVOLOG) 1 VIAL SQ SCH ×4 (06:09→22:56)
[2022-11-02] MEDS: GABAPENTIN 100 MG CAPSULE PO SCH (10:21)
[2022-11-02] MEDS: HEPARIN NA (PORCINE) 5,000 UNITS/ML 1ML VIAL SQ SCH ×3 (10:22→22:51)
[2022-11-02 14:50] LABS: HEMATOCRIT 32.3 % (32.4-45.2); HEMOGLOBIN 10.2 GM/dL (10.7-15.3); MCH 28.9 pg (25.7-33.7); MCHC 31.5 g/dl (32.0-36.0); MEAN CELL VOLUME 91.9 fl (80-96); MEAN PLT VOLUME 6.8 fl (7.5-11.1); PLATELET COUNT 212 10^3/uL (134-434); RBC 3.52 M/mm3 (3.60-5.2); RDW 14.4 % (11.6-15.6); WHITE BLOOD COUNT 9.5 K/mm3 (4.0-10.0)
[2022-11-02 15:13] LABS: BLOOD UREA NITROGEN 54.3 mg/dL (7-18)
[2022-11-02 15:15] LABS: ALBUMIN 2.4 g/dl (3.4-5.0)
[2022-11-02 15:16] LABS: CREATININE 6.4 mg/dL (0.55-1.3)
[2022-11-02 15:18] LABS: BILIRUBIN,TOTAL 0.3 mg/dL (0.2-1); TOT PROT 6.3 g/dl (6.4-8.2)
[2022-11-02] MEDS: NIFEdipine E.R 60 MG TABLET PO SCH (18:18)
[2022-11-02] MEDS ORDERED: ONDANSETRON 4 MG TABLET PO ONE (18:55)
[2022-11-02] MEDS ORDERED: ONDANSETRON 4 MG/2 ML VIAL IVPUSH ONE (18:55)
[2022-11-02] MEDS: ROSUVASTATIN CA 10 MG TABLET PO SCH (22:50)
[2022-11-02] MEDS: DONEPEZIL HCL 10 MG TABLET (FP) PO SCH (22:51)
[2022-11-03 06:14] VITALS: RESP 18
[2022-11-03] MEDS ORDERED: INSULIN (LEVEMIR) 100 UNITS/ML UNITS SQ ONE (06:14)
[2022-11-03] MEDS: INSULIN SLIDING SCALE (NOVOLOG) 1 VIAL SQ SCH ×2 (06:39→14:42)
[2022-11-03] MEDS: INSULIN (LEVEMIR) 100 UNITS/ML UNITS SQ SCH (06:39)
[2022-11-03 08:04] LABS: BASO % 0.5 % (0-2.0); EOS % 1.6 % (0-4.5); HEMATOCRIT 38.1 % (32.4-45.2); HEMOGLOBIN 12.1 GM/dL (10.7-15.3); LYMPH % 18.1 % (8-40); MCHC 31.9 g/dl (32.0-36.0); MEAN CELL VOLUME 91.1 fl (80-96); MEAN PLT VOLUME 7.2 fl (7.5-11.1); MONO % 12.4 % (3.8-10.2); NEUT % 67.4 % (42.8-82.8); PLATELET COUNT 256 10^3/uL (134-434); RBC 4.18 M/mm3 (3.60-5.2); RDW 14.4 % (11.6-15.6); WHITE BLOOD COUNT 7.9 K/mm3 (4.0-10.0)
[2022-11-03 08:19] LABS: CALCIUM 8.5 mg/dL (8.5-10.1)
[2022-11-03 08:20] LABS: BLOOD UREA NITROGEN 33.1 mg/dL (7-18)
[2022-11-03 08:23] LABS: CREATININE 4.8 mg/dL (0.55-1.3)
[2022-11-03] MEDS: NIFEdipine E.R 60 MG TABLET PO SCH ×2 (11:29→11:31)
[2022-11-03] MEDS: HEPARIN NA (PORCINE) 5,000 UNITS/ML 1ML VIAL SQ SCH (11:30)
[2022-11-03] MEDS: GABAPENTIN 100 MG CAPSULE PO SCH (11:30)
[2022-11-03 14:59] VITALS: BP 147/69; PULSE 79; TEMP 99.3
== END 2022-11-03 18:39 | disposition home or self-care (01) | DRG 194 ==
LOC: JER 00:37 → JERBED 03:58 → J7W 10:03
PROVIDERS: ADMIT Internal Medicine; ATTEND Internal Medicine
PROC: 5A1D70Z Performance of Urinary Filtration, Intermittent, Less than 6 Hours Per Day (ICD-10-PCS; principal; 2022-10-29)
DX: I13.2 Hypertensive heart and chronic kidney disease with heart failure and with stage 5 chronic kidney disease, or end stage renal disease (principal); I50.33 Acute on chronic diastolic (congestive) heart failure; F03.90 Unspecified dementia, unspecified severity, without behavioral disturbance, psychotic disturbance, mood disturbance, and anxiety; J44.9 Chronic obstructive pulmonary disease, unspecified; N18.6 End stage renal disease; Z99.2 Dependence on renal dialysis; E87.5 Hyperkalemia; E11.22 Type 2 diabetes mellitus with diabetic chronic kidney disease; E11.65 Type 2 diabetes mellitus with hyperglycemia; J98.11 Atelectasis; I25.10 Atherosclerotic heart disease of native coronary artery without angina pectoris; Z79.4 Long term (current) use of insulin
CPT/HCPCS: 0241U-QW; 36415; 71045-TC-FY; 80048; 80053; 82962; 83735; 84100; 84443; 84484; 85025; 85027; 87040; 93005; 93010; 99285-25; J1644; Q5106

== ENCOUNTER 2022-11-12 08:34 | Inpatient (IN) | payer OTHER ==
[2022-11-12] MEDS ORDERED: CALCIUM CHLORIDE 1 GM/10 ML *DISP.SYRIN ONE (08:43)
[2022-11-12] MEDS ORDERED: FENTANYL CITRATE/PF 50 MCG/ML VIAL ONE (09:09)
[2022-11-12] MEDS ORDERED: PROPOFOL 1,000,000 MCG/100 ML VIAL IVPB SCH ×2 (09:30→10:00)
[2022-11-12] MEDS ORDERED: FENTANYL NS IVPB 500 MCG/100 ML BAG IVPB ONE (09:51)
[2022-11-12] MEDS: FENTANYL NS IVPB 500 MCG/100 ML BAG IVPB SCH (10:07)
[2022-11-12] MEDS ORDERED: PROPOFOL 1,000,000 MCG/100 ML VIAL ONE (10:19)
[2022-11-12] MEDS: PROPOFOL 1,000,000 MCG/100 ML VIAL IVPB SCH (11:20)
[2022-11-12 12:08] LABS: VENOUS BASE EXCESS -8.5 mmol/L (-2-2); VENOUS PCO2 54.7 mmHg (38-52)
[2022-11-12 12:09] LABS: HEMATOCRIT 37.9 % (32.4-45.2); HEMOGLOBIN 11.8 GM/dL (10.7-15.3); MCH 28.9 pg (25.7-33.7); MEAN PLT VOLUME 6.7 fl (7.5-11.1); PLATELET COUNT 330 10^3/uL (134-434); RBC 4.07 M/mm3 (3.60-5.2); RDW 14.8 % (11.6-15.6); WHITE BLOOD COUNT 23.4 K/mm3 (4.0-10.0)
[2022-11-12 12:10] LABS: VENOUS PH 7.184 (7.310-7.410)
[2022-11-12 12:19] LABS: INR 1.03 (0.83-1.09); PROTHROMBIN TIME (PATIENT) 11.9 SEC (9.7-13.0)
[2022-11-12 12:30] LABS: CHLORIDE 105 mmol/L (98-107); SODIUM 141 mmol/L (136-145)
[2022-11-12 12:32] LABS: ARTERIAL BLD GAS O2 SATURATION 92.4 % (95-98); ARTERIAL BLOOD GAS BASE EXCESS -4.5 mmol/L (-2-2); ARTERIAL BLOOD GAS PO2 68.8 mmHg (80-100); ARTERIAL BLOOD GAS pH 7.317 (7.350-7.450)
[2022-11-12 12:33] LABS: ALLENS TEST POSITIVE
[2022-11-12 12:34] LABS: VENT RATE 14
[2022-11-12 12:37] LABS: ANION GAP 15 MMOL/L (8-16); CO2 21 mmol/L (21-32); GLUCOSE,RANDOM 263 mg/dL (74-106)
[2022-11-12 12:38] LABS: ALBUMIN 2.6 g/dl (3.4-5.0)
[2022-11-12 12:39] LABS: LIPASE 273 U/L (73-393)
[2022-11-12 12:41] LABS: CREATININE 7.4 mg/dL (0.55-1.3); SGOT/AST 468 U/L (15-37); SGPT/ALT 566 U/L (13-61)
[2022-11-12 12:42] LABS: BILIRUBIN,TOTAL 0.5 mg/dL (0.2-1); LACTIC ACID 3.1 mmol/L (0.4-2.0); TOT PROT 6.6 g/dl (6.4-8.2)
[2022-11-12 12:43] LABS: ALK PHOS 110 U/L (45-117)
[2022-11-12 12:46] LABS: N-TERMINAL BNP 19028.8 pg/ml (5-450)
[2022-11-12 12:49] LABS: BLOOD UREA NITROGEN 87.1 mg/dL (7-18)
[2022-11-12 13:38] LABS: ANISOCYTOSIS 0; MACROCYTOSIS 0
[2022-11-12] MEDS ORDERED: HEPARIN NA (PORCINE) 5,000 UNITS/ML 1ML VIAL IVPUSH ONE (15:41)
[2022-11-12] MEDS ORDERED: HEPARIN NA (PORCINE) 5,000 UNITS/ML 1ML VIAL IVPUSH PRN ×2 (15:41)
[2022-11-12] MEDS ORDERED: HEPARIN - 25,000 UNIT in SODIUM CHLORIDE 495 ML IV SCH (15:45)
[2022-11-12] MEDS ORDERED: DEXTROSE 50%-WATER - 25 GM/50 ML VIAL IVPUSH ONE (16:05)
[2022-11-12] MEDS ORDERED: INSULIN REGULAR HUMAN 100 UNITS/ML *VIAL IVPUSH ONE (16:05)
[2022-11-12] MEDS ORDERED: CALCIUM GLUCONATE 10% - 1,000 MG/10 ML VIAL IVPUSH ONE (16:05)
[2022-11-12] MEDS ORDERED: SODIUM ZIRCONIUM CYCLOSILICATE (LOKELMA) 5 GM PACKET NGT ONE (16:15)
[2022-11-12 16:16] LABS: ALLENS TEST POSITIVE; ARTERIAL BLD GAS O2 SATURATION 98.9 % (95-98); ARTERIAL BLOOD GAS BASE EXCESS -5.9 mmol/L (-2-2); ARTERIAL BLOOD GAS PO2 179.3 mmHg (80-100); ARTERIAL BLOOD GAS pH 7.217 (7.350-7.450)
[2022-11-12 16:18] LABS: VENT MODE A/C; VENT RATE 14
[2022-11-12] MEDS ORDERED: ASPIRIN 81 MG CHEWABLE TABLETS NGT ONE (16:47)
[2022-11-12] MEDS ORDERED: ATORVASTATIN CA 40 MG TABLET (FP) ONE (17:08)
[2022-11-12] MEDS ORDERED: SODIUM ZIRCONIUM CYCLOSILICATE (LOKELMA) 5 GM PACKET ONE (17:08)
[2022-11-12] MEDS ORDERED: DEXTROSE 50%-WATER 25 GM/50 ML DISP.SYRIN ONE (17:09)
[2022-11-12] MEDS ORDERED: HEPARIN NA (PORCINE) 5,000 UNITS/ML 1ML VIAL ONE (17:09)
[2022-11-12] MEDS ORDERED: CALCIUM GLUCONATE 10% - 1,000 MG/10 ML VIAL ONE (17:09)
[2022-11-12] MEDS ORDERED: ASPIRIN 81 MG CHEWABLE TABLETS ONE (17:09)
[2022-11-12] MEDS ORDERED: HEPARIN INFUSION - 25,000 UNITS/500 ML INFUS.BAG IVPB ONE (17:09)
[2022-11-12] MEDS: ATORVASTATIN CA 40 MG TABLET (FP) NGT SCH (17:33)
[2022-11-12] MEDS ORDERED: VANCOMYCIN 1 GM/200 ML PREMIX BAG (RESTRICTED TO ID ONLY) IVPB ONE (17:45)
[2022-11-12] MEDS ORDERED: PIPERACILLIN/TAZOB 2.25 GM 2.25 GM/50 ML BAG IVPB ONE (17:57)
[2022-11-12] MEDS ORDERED: VANCOMYCIN/WATER FOR INJ (PEG) 1,000 MG/200 ML BAG IVPB ONE (17:57)
[2022-11-12] MEDS: PIPERACILLIN/TAZOB 2.25 GM 2.25 GM in DEXTROSE 5%-WATER - 50 ML IVPB SCH (18:08)
[2022-11-12] MEDS: INSULIN SLIDING SCALE (NOVOLOG) 1 VIAL SQ SCH (18:34)
[2022-11-13] MEDS ORDERED: SODIUM CHLORIDE 500 ML IV STA (00:10)
[2022-11-13] MEDS: ATORVASTATIN CA 40 MG TABLET (FP) NGT SCH ×2 (01:00→22:01)
[2022-11-13] MEDS: INSULIN SLIDING SCALE (NOVOLOG) 1 VIAL SQ SCH ×5 (01:06→22:01)
[2022-11-13] MEDS: MUPIROCIN 2% TOPICAL OINTMENT FOR DECOLONIZATION NS SCH ×3 (01:13→22:02)
[2022-11-13] MEDS: CHLORHEXIDINE GLUCONATE 4% CLEANSER FOR DECOLONIZATION TP SCH ×2 (01:13→22:01)
[2022-11-13] MEDS ORDERED: LORazepam 2 MG/ML SDV VIAL IVPUSH ONE (02:03)
[2022-11-13 02:12] LABS: ALBUMIN 2.2 g/dl (3.4-5.0); ALK PHOS 81 U/L (45-117); ANION GAP 14 MMOL/L (8-16); BILIRUBIN,TOTAL 0.4 mg/dL (0.2-1); BLOOD UREA NITROGEN 93.5 mg/dL (7-18); CALCIUM 8.8 mg/dL (8.5-10.1); CHLORIDE 105 mmol/L (98-107); CO2 21 mmol/L (21-32); CREATININE 7.8 mg/dL (0.55-1.3); GLUCOSE,RANDOM 174 mg/dL (74-106); SGOT/AST 262 U/L (15-37); SGPT/ALT 382 U/L (13-61); SODIUM 141 mmol/L (136-145); TOT PROT 6.1 g/dl (6.4-8.2)
[2022-11-13] MEDS ORDERED: SODIUM BICARBONATE 8.4% 50 MEQ/50 ML DISP.SYRIN IVPUSH ONE (02:18)
[2022-11-13] MEDS ORDERED: DEXTROSE 50%-WATER - 25 GM/50 ML VIAL IVPUSH ONE (02:18)
[2022-11-13] MEDS ORDERED: INSULIN REGULAR HUMAN 100 UNITS/ML *VIAL IVPUSH ONE (02:18)
[2022-11-13] MEDS ORDERED: SODIUM ZIRCONIUM CYCLOSILICATE (LOKELMA) 5 GM PACKET PO ONE (02:18)
[2022-11-13] MEDS: PIPERACILLIN/TAZOB 2.25 GM 2.25 GM in DEXTROSE 5%-WATER - 50 ML IVPB SCH ×3 (02:29→17:09)
[2022-11-13] MEDS ORDERED: DEXTROSE 50%-WATER 25 GM/50 ML DISP.SYRIN ONE (02:34)
[2022-11-13] MEDS ORDERED: SODIUM CHLORIDE 250 ML IV PRN (06:46)
[2022-11-13 06:58] LABS: ARTERIAL BLD GAS O2 SATURATION 97.6 % (95-98); ARTERIAL BLOOD GAS BASE EXCESS -1.1 mmol/L (-2-2); ARTERIAL BLOOD GAS pH 7.387 (7.350-7.450)
[2022-11-13 07:07] LABS: ALLENS TEST POSITIVE
[2022-11-13 07:08] LABS: VENT MODE A/C; VENT RATE 18
[2022-11-13 07:40] LABS: BASO % 0.1 % (0-2.0); EOS % 0.2 % (0-4.5); HEMATOCRIT 29.1 % (32.4-45.2); HEMOGLOBIN 9.5 GM/dL (10.7-15.3); LYMPH % 5.8 % (8-40); MCH 29.3 pg (25.7-33.7); MCHC 32.5 g/dl (32.0-36.0); MEAN CELL VOLUME 90.2 fl (80-96); MEAN PLT VOLUME 6.7 fl (7.5-11.1); MONO % 4.6 % (3.8-10.2); NEUT % 89.3 % (42.8-82.8); PLATELET COUNT 213 10^3/uL (134-434); RBC 3.22 M/mm3 (3.60-5.2); RDW 14.6 % (11.6-15.6); WHITE BLOOD COUNT 17.3 K/mm3 (4.0-10.0)
[2022-11-13 07:42] LABS: INR 1.22 (0.83-1.09); PROTHROMBIN TIME (PATIENT) 14.1 SEC (9.7-13.0)
[2022-11-13 07:49] LABS: CHLORIDE 103 mmol/L (98-107)
[2022-11-13 08:27] LABS: ACTIVATED PTT 155.5 SECONDS (25.2-36.5)
[2022-11-13 09:00] LABS: SODIUM 140 mmol/L (136-145)
[2022-11-13 09:02] LABS: ALBUMIN 2.2 g/dl (3.4-5.0); ANION GAP 14 MMOL/L (8-16); BLOOD UREA NITROGEN 94.1 mg/dL (7-18); CALCIUM 8.7 mg/dL (8.5-10.1); CO2 23 mmol/L (21-32); GLUCOSE,RANDOM 125 mg/dL (74-106); MAGNESIUM 1.9 mg/dL (1.8-2.4)
[2022-11-13] MEDS: PROPOFOL 1,000,000 MCG/100 ML VIAL IVPB SCH ×2 (09:02→10:28)
[2022-11-13] MEDS: FENTANYL NS IVPB 500 MCG/100 ML BAG IVPB SCH ×2 (09:02→22:00)
[2022-11-13 09:05] LABS: PHOSPHOROUS 4.4 mg/dL (2.5-4.9); SGOT/AST 197 U/L (15-37); SGPT/ALT 324 U/L (13-61)
[2022-11-13 09:08] LABS: ALK PHOS 76 U/L (45-117); BILIRUBIN,TOTAL 0.4 mg/dL (0.2-1); TOT PROT 5.9 g/dl (6.4-8.2)
[2022-11-13] MEDS: ASPIRIN 81 MG CHEWABLE TABLETS NGT SCH (09:31)
[2022-11-13] MEDS: PANTOPRAZOLE SODIUM 40 MG VIAL IVPUSH SCH (09:31)
[2022-11-13 09:55] LABS: CREATININE 7.6 mg/dL (0.55-1.3)
[2022-11-13 10:27] LABS: CHLORIDE 102 mmol/L (98-107); SODIUM 140 mmol/L (136-145)
[2022-11-13 10:30] LABS: ANION GAP 16 MMOL/L (8-16); BLOOD UREA NITROGEN 94.9 mg/dL (7-18); CALCIUM 8.9 mg/dL (8.5-10.1); CO2 22 mmol/L (21-32); GLUCOSE,RANDOM 87 mg/dL (74-106)
[2022-11-13] MEDS ORDERED: MIDAZOLAM HCL 2 MG/2 ML SINGLE DOSE VIAL IVPUSH ONE (10:53)
[2022-11-13] MEDS ORDERED: MIDAZOLAM IN 0.9 % SOD.CHLORID 1 MG/1 ML PLAST..BAG ONE (10:54)
[2022-11-13 11:09] LABS: CREATININE 7.8 mg/dL (0.55-1.3)
[2022-11-13] MEDS: MIDAZOLAM IN 0.9 % SOD.CHLORID 100 MG/100 ML PLAST..BAG IVPB SCH (11:34)
[2022-11-13 13:55] LABS: CALCIUM 7.8 mg/dL (8.5-10.1)
[2022-11-13 13:59] LABS: CREATININE 3.9 mg/dL (0.55-1.3)
[2022-11-13 14:01] LABS: BLOOD UREA NITROGEN 35.1 mg/dL (7-18)
[2022-11-13] MEDS: HEPARIN NA (PORCINE) 5,000 UNITS/ML 1ML VIAL SQ SCH ×2 (14:18→22:01)
[2022-11-13] MEDS: levETIRAcetam 500 MG/5 ML INJECTION VIAL IVPB SCH (22:01)
[2022-11-14] MEDS: PIPERACILLIN/TAZOB 2.25 GM 2.25 GM in DEXTROSE 5%-WATER - 50 ML IVPB SCH ×5 (01:38→17:28)
[2022-11-14] MEDS: MIDAZOLAM IN 0.9 % SOD.CHLORID 100 MG/100 ML PLAST..BAG IVPB SCH (06:10)
[2022-11-14] MEDS: FENTANYL NS IVPB 500 MCG/100 ML BAG IVPB SCH ×2 (06:10→10:35)
[2022-11-14] MEDS: PROPOFOL 1,000,000 MCG/100 ML VIAL IVPB SCH ×2 (06:11→10:45)
[2022-11-14] MEDS: INSULIN SLIDING SCALE (NOVOLOG) 1 VIAL SQ SCH ×4 (06:31→22:23)
[2022-11-14] MEDS: HEPARIN NA (PORCINE) 5,000 UNITS/ML 1ML VIAL SQ SCH ×3 (06:31→22:19)
[2022-11-14 07:25] LABS: BASO % 0.4 % (0-2.0); EOS % 2.8 % (0-4.5); HEMATOCRIT 29.3 % (32.4-45.2); HEMOGLOBIN 9.5 GM/dL (10.7-15.3); LYMPH % 5.9 % (8-40); MCH 29.3 pg (25.7-33.7); MCHC 32.3 g/dl (32.0-36.0); MEAN CELL VOLUME 90.5 fl (80-96); MEAN PLT VOLUME 7.1 fl (7.5-11.1); MONO % 5.2 % (3.8-10.2); NEUT % 85.7 % (42.8-82.8); PLATELET COUNT 178 10^3/uL (134-434); RBC 3.24 M/mm3 (3.60-5.2); RDW 14.7 % (11.6-15.6); WHITE BLOOD COUNT 16.4 K/mm3 (4.0-10.0)
[2022-11-14 07:43] LABS: CALCIUM 7.3 mg/dL (8.5-10.1)
[2022-11-14 07:44] LABS: ALBUMIN 2.1 g/dl (3.4-5.0); MAGNESIUM 1.5 mg/dL (1.8-2.4)
[2022-11-14 07:47] LABS: CREATININE 5.2 mg/dL (0.55-1.3); PHOSPHOROUS 3.3 mg/dL (2.5-4.9)
[2022-11-14 07:49] LABS: BILIRUBIN,TOTAL 0.6 mg/dL (0.2-1); TOT PROT 5.7 g/dl (6.4-8.2)
[2022-11-14] MEDS: levETIRAcetam 500 MG/5 ML INJECTION VIAL IVPB SCH ×2 (09:26→22:19)
[2022-11-14] MEDS: ASPIRIN 81 MG CHEWABLE TABLETS NGT SCH (09:26)
[2022-11-14] MEDS: PANTOPRAZOLE SODIUM 40 MG VIAL IVPUSH SCH (09:26)
[2022-11-14] MEDS: MUPIROCIN 2% TOPICAL OINTMENT FOR DECOLONIZATION NS SCH ×2 (09:27→22:19)
[2022-11-14] MEDS ORDERED: SODIUM CHLORIDE 250 ML IV PRN (16:46)
[2022-11-14] MEDS ORDERED: ACETAMINOPHEN 1000 MG/100 ML BAG IVPB ONE (18:19)
[2022-11-14] MEDS: ATORVASTATIN CA 40 MG TABLET (FP) NGT SCH (22:19)
[2022-11-14] MEDS: CHLORHEXIDINE GLUCONATE 4% CLEANSER FOR DECOLONIZATION TP SCH (22:19)
[2022-11-14] MEDS: LABETALOL HCL 5 MG/1 ML (100MG/20 ML VIAL) IVPUSH PRN (23:17)
[2022-11-15] MEDS ORDERED: LABETALOL HCL 5 MG/1 ML (100MG/20 ML VIAL) IVPUSH ONE (00:18)
[2022-11-15] MEDS: PIPERACILLIN/TAZOB 2.25 GM 2.25 GM in DEXTROSE 5%-WATER - 50 ML IVPB SCH ×3 (01:33→17:09)
[2022-11-15] MEDS: HEPARIN NA (PORCINE) 5,000 UNITS/ML 1ML VIAL SQ SCH ×3 (06:23→22:12)
[2022-11-15] MEDS: INSULIN SLIDING SCALE (NOVOLOG) 1 VIAL SQ SCH ×4 (06:24→21:34)
[2022-11-15] MEDS: LABETALOL HCL 5 MG/1 ML (100MG/20 ML VIAL) IVPUSH PRN (06:26)
[2022-11-15 07:53] LABS: BASO % 0.3 % (0-2.0); EOS % 2.6 % (0-4.5); HEMATOCRIT 29.7 % (32.4-45.2); HEMOGLOBIN 9.4 GM/dL (10.7-15.3); MCH 28.7 pg (25.7-33.7); MCHC 31.8 g/dl (32.0-36.0); MEAN CELL VOLUME 90.2 fl (80-96); MEAN PLT VOLUME 6.9 fl (7.5-11.1); MONO % 6.6 % (3.8-10.2); NEUT % 85.5 % (42.8-82.8); PLATELET COUNT 172 10^3/uL (134-434); RBC 3.29 M/mm3 (3.60-5.2); RDW 14.8 % (11.6-15.6); WHITE BLOOD COUNT 15.3 K/mm3 (4.0-10.0)
[2022-11-15 08:09] LABS: ALBUMIN 2.2 g/dl (3.4-5.0)
[2022-11-15 08:10] LABS: BLOOD UREA NITROGEN 60.3 mg/dL (7-18); CALCIUM 7.2 mg/dL (8.5-10.1); MAGNESIUM 1.6 mg/dL (1.8-2.4)
[2022-11-15 08:12] LABS: CREATININE 6.7 mg/dL (0.55-1.3); PHOSPHOROUS 5.2 mg/dL (2.5-4.9)
[2022-11-15 08:13] LABS: TOT PROT 5.9 g/dl (6.4-8.2)
[2022-11-15 08:33] LABS: BILIRUBIN,TOTAL 0.6 mg/dL (0.2-1)
[2022-11-15 09:37] LABS: HEMATOCRIT 27.6 % (32.4-45.2); HEMOGLOBIN 9.2 GM/dL (10.7-15.3); MCH 29.8 pg (25.7-33.7); MCHC 33.2 g/dl (32.0-36.0); MEAN CELL VOLUME 89.6 fl (80-96); MEAN PLT VOLUME 7.3 fl (7.5-11.1); PLATELET COUNT 177 10^3/uL (134-434); RBC 3.08 M/mm3 (3.60-5.2); RDW 14.3 % (11.6-15.6)
[2022-11-15 09:58] LABS: CALCIUM 7.3 mg/dL (8.5-10.1)
[2022-11-15 09:59] LABS: BLOOD UREA NITROGEN 63.5 mg/dL (7-18)
[2022-11-15 10:02] LABS: CREATININE 6.9 mg/dL (0.55-1.3)
[2022-11-15] MEDS: ASPIRIN 81 MG CHEWABLE TABLETS NGT SCH (11:45)
[2022-11-15] MEDS: levETIRAcetam 500 MG/5 ML INJECTION VIAL IVPB SCH ×2 (11:45→22:13)
[2022-11-15] MEDS: PANTOPRAZOLE SODIUM 40 MG VIAL IVPUSH SCH (11:45)
[2022-11-15] MEDS: AMINO ACIDS/PROTEIN HYDROLYS 30 ML LIQUID.PKT PO SCH (11:46)
[2022-11-15] MEDS: MUPIROCIN 2% TOPICAL OINTMENT FOR DECOLONIZATION NS SCH ×2 (11:46→22:12)
[2022-11-15] MEDS ORDERED: LABETALOL HCL 5 MG/1 ML (100MG/20 ML VIAL) IVPUSH PRN (12:07)
[2022-11-15] MEDS ORDERED: LORazepam 2 MG/ML SDV VIAL IVPUSH ONE (13:15)
[2022-11-15] MEDS ORDERED: ACETAMINOPHEN 1000 MG/100 ML BAG IVPB ONE (14:24)
[2022-11-15 19:50] LABS: EPI CELLS 6 /uL (0-25.1); HYALINE CASTS 0 /uL (0-3.1); URINE APPEARANCE CLEAR; URINE BACTERIA 1718 /uL (0-1359); URINE BILIRUBIN NEGATIVE (NEGATIVE); URINE COLOR YELLOW; URINE GLUCOSE (UA) TRACE (NEGATIVE); URINE KETONE NEGATIVE (NEGATIVE); URINE LEUK ESTERASE NEGATIVE (NEGATIVE); URINE NITRITE NEGATIVE (NEGATIVE); URINE PROTEIN 3+ (NEGATIVE); URINE RBC 3 /uL (0-23.9); URINE WBC 5 /uL (0-25.8)
[2022-11-15] MEDS ORDERED: VALPROATE SODIUM IVPB SCH (22:00)
[2022-11-15] MEDS ORDERED: DEXTROSE 5% IVPB SCH (22:00)
[2022-11-15] MEDS ORDERED: WATER IVPB SCH (22:00)
[2022-11-15] MEDS ORDERED: VALPROATE SODIUM 500 MG/5 ML VIAL IVPB SCH (22:00)
[2022-11-15] MEDS: CHLORHEXIDINE GLUCONATE 4% CLEANSER FOR DECOLONIZATION TP SCH (22:12)
[2022-11-15] MEDS: ATORVASTATIN CA 40 MG TABLET (FP) NGT SCH (22:12)
[2022-11-15] MEDS: DEXTROSE 5% IVPB SCH (22:19)
[2022-11-15] MEDS: VALPROATE SODIUM IVPB SCH (22:19)
[2022-11-15] MEDS: WATER IVPB SCH (22:19)
[2022-11-16] MEDS: PIPERACILLIN/TAZOB 2.25 GM 2.25 GM in DEXTROSE 5%-WATER - 50 ML IVPB SCH ×3 (02:00→17:07)
[2022-11-16] MEDS ORDERED: FENTANYL CITRATE/PF 50 MCG/ML VIAL IVPUSH ONE ×2 (03:15→06:14)
[2022-11-16] MEDS ORDERED: ACETAMINOPHEN 650 MG/20.3 ML ORAL SOLUTION (CUPS) NGT PRN (06:19)
[2022-11-16] MEDS: INSULIN SLIDING SCALE (NOVOLOG) 1 VIAL SQ SCH ×4 (06:29→21:58)
[2022-11-16] MEDS: HEPARIN NA (PORCINE) 5,000 UNITS/ML 1ML VIAL SQ SCH ×3 (06:29→21:29)
[2022-11-16 08:37] LABS: BASO % 0.6 % (0-2.0); EOS % 2.8 % (0-4.5); HEMATOCRIT 27.7 % (32.4-45.2); LYMPH % 8.5 % (8-40); MCH 29.4 pg (25.7-33.7); MCHC 32.4 g/dl (32.0-36.0); MEAN CELL VOLUME 90.7 fl (80-96); MEAN PLT VOLUME 7.2 fl (7.5-11.1); MONO % 8.4 % (3.8-10.2); NEUT % 79.7 % (42.8-82.8); PLATELET COUNT 168 10^3/uL (134-434); RBC 3.05 M/mm3 (3.60-5.2); RDW 14.4 % (11.6-15.6); WHITE BLOOD COUNT 10.6 K/mm3 (4.0-10.0)
[2022-11-16] MEDS ORDERED: HYDROmorphone HCL CARPU-JECT 2 MG/1 ML DISP.SYRIN IVPUSH PRN (08:50)
[2022-11-16] MEDS ORDERED: HYDROmorphone HCl 2 MG/ML VIAL IVPUSH PRN (08:55)
[2022-11-16] MEDS: AMINO ACIDS/PROTEIN HYDROLYS 30 ML LIQUID.PKT PO SCH (08:55)
[2022-11-16 09:03] LABS: CALCIUM 7.4 mg/dL (8.5-10.1)
[2022-11-16 09:04] LABS: ALBUMIN 2.1 g/dl (3.4-5.0); BLOOD UREA NITROGEN 45.3 mg/dL (7-18); MAGNESIUM 1.9 mg/dL (1.8-2.4); PHOSPHOROUS 4.7 mg/dL (2.5-4.9)
[2022-11-16 09:06] LABS: CREATININE 5.1 mg/dL (0.55-1.3)
[2022-11-16 09:08] LABS: BILIRUBIN,TOTAL 0.4 mg/dL (0.2-1); TOT PROT 5.8 g/dl (6.4-8.2)
[2022-11-16] MEDS: PANTOPRAZOLE SODIUM 40 MG VIAL IVPUSH SCH (09:51)
[2022-11-16] MEDS: ASPIRIN 81 MG CHEWABLE TABLETS NGT SCH (09:51)
[2022-11-16] MEDS: MUPIROCIN 2% TOPICAL OINTMENT FOR DECOLONIZATION NS SCH ×2 (09:51→21:28)
[2022-11-16] MEDS: DEXTROSE 5% IVPB SCH ×2 (09:52→21:29)
[2022-11-16] MEDS: VALPROATE SODIUM IVPB SCH ×2 (09:52→21:29)
[2022-11-16] MEDS: WATER IVPB SCH ×2 (09:52→21:29)
[2022-11-16] MEDS: levETIRAcetam 500 MG/5 ML INJECTION VIAL IVPB SCH ×2 (11:00→21:37)
[2022-11-16] MEDS ORDERED: LABETALOL HCL 5 MG/1 ML (100MG/20 ML VIAL) IVPUSH PRN (16:06)
[2022-11-16] MEDS: HYDROmorphone HCl 2 MG/ML VIAL IVPUSH PRN (16:26)
[2022-11-16] MEDS: LABETALOL HCL 5 MG/1 ML (100MG/20 ML VIAL) IVPUSH PRN ×2 (16:26→22:05)
[2022-11-16] MEDS ORDERED: HYDROmorphone HCl 2 MG/ML VIAL IVPUSH ONE (18:02)
[2022-11-16] MEDS: PROPOFOL 1,000,000 MCG/100 ML VIAL IVPUSH SCH (18:37)
[2022-11-16] MEDS: ATORVASTATIN CA 40 MG TABLET (FP) NGT SCH (21:28)
[2022-11-16] MEDS: CHLORHEXIDINE GLUCONATE 4% CLEANSER FOR DECOLONIZATION TP SCH (21:29)
[2022-11-16] MEDS ORDERED: METOPROLOL TARTRATE 25 MG TABLET (FP) GT SCH (22:00)
[2022-11-17] MEDS: PIPERACILLIN/TAZOB 2.25 GM 2.25 GM in DEXTROSE 5%-WATER - 50 ML IVPB SCH ×3 (01:38→17:36)
[2022-11-17] MEDS: LABETALOL HCL 5 MG/1 ML (100MG/20 ML VIAL) IVPUSH PRN ×2 (05:06→20:34)
[2022-11-17] MEDS: PROPOFOL 1,000,000 MCG/100 ML VIAL IVPUSH SCH ×2 (05:34→19:00)
[2022-11-17] MEDS: HEPARIN NA (PORCINE) 5,000 UNITS/ML 1ML VIAL SQ SCH ×3 (06:26→21:25)
[2022-11-17] MEDS: INSULIN SLIDING SCALE (NOVOLOG) 1 VIAL SQ SCH ×4 (06:27→21:25)
[2022-11-17 07:23] LABS: BASO % 0.4 % (0-2.0); EOS % 3.1 % (0-4.5); HEMATOCRIT 28.2 % (32.4-45.2); HEMOGLOBIN 9.3 GM/dL (10.7-15.3); LYMPH % 8.4 % (8-40); MCH 29.8 pg (25.7-33.7); MCHC 33.1 g/dl (32.0-36.0); MEAN PLT VOLUME 7.3 fl (7.5-11.1); MONO % 10.2 % (3.8-10.2); NEUT % 77.9 % (42.8-82.8); PLATELET COUNT 156 10^3/uL (134-434); RBC 3.13 M/mm3 (3.60-5.2); RDW 14.9 % (11.6-15.6); WHITE BLOOD COUNT 11.1 K/mm3 (4.0-10.0)
[2022-11-17 07:24] LABS: BLOOD UREA NITROGEN 57.4 mg/dL (7-18); CALCIUM 7.6 mg/dL (8.5-10.1)
[2022-11-17 07:27] LABS: CREATININE 6.4 mg/dL (0.55-1.3); PHOSPHOROUS 7.3 mg/dL (2.5-4.9)
[2022-11-17 07:29] LABS: BILIRUBIN,TOTAL 0.4 mg/dL (0.2-1); TOT PROT 6.1 g/dl (6.4-8.2)
[2022-11-17] MEDS ORDERED: SODIUM CHLORIDE 250 ML IV PRN (08:36)
[2022-11-17] MEDS: AMINO ACIDS/PROTEIN HYDROLYS 30 ML LIQUID.PKT PO SCH (09:00)
[2022-11-17] MEDS ORDERED: EPOETIN ALFA-EPBX 10,000 UNIT/ML VIAL SQ ONE (10:00)
[2022-11-17] MEDS: ASPIRIN 81 MG CHEWABLE TABLETS NGT SCH (10:03)
[2022-11-17] MEDS: levETIRAcetam 500 MG/5 ML INJECTION VIAL IVPB SCH ×2 (10:03→21:24)
[2022-11-17] MEDS: PANTOPRAZOLE SODIUM 40 MG VIAL IVPUSH SCH (10:03)
[2022-11-17] MEDS: MUPIROCIN 2% TOPICAL OINTMENT FOR DECOLONIZATION NS SCH (10:03)
[2022-11-17] MEDS: METOPROLOL TARTRATE 50 MG TABLET (FP) NGT SCH ×3 (10:15→21:25)
[2022-11-17] MEDS: WATER IVPB SCH ×2 (10:51→21:24)
[2022-11-17] MEDS: VALPROATE SODIUM IVPB SCH ×2 (10:51→21:24)
[2022-11-17] MEDS: DEXTROSE 5% IVPB SCH ×2 (10:51→21:24)
[2022-11-17 12:34] VITALS: BMI 34.0
[2022-11-17] MEDS: HYDROmorphone HCl 2 MG/ML VIAL IVPUSH PRN (14:12)
[2022-11-17] MEDS: ATORVASTATIN CA 40 MG TABLET (FP) NGT SCH (21:25)
[2022-11-17] MEDS: CHLORHEXIDINE GLUCONATE 4% CLEANSER FOR DECOLONIZATION TP SCH (21:37)
[2022-11-18] MEDS: LABETALOL HCL 5 MG/1 ML (100MG/20 ML VIAL) IVPUSH PRN ×3 (01:07→18:06)
[2022-11-18] MEDS: PIPERACILLIN/TAZOB 2.25 GM 2.25 GM in DEXTROSE 5%-WATER - 50 ML IVPB SCH ×3 (02:49→17:41)
[2022-11-18] MEDS: HEPARIN NA (PORCINE) 5,000 UNITS/ML 1ML VIAL SQ SCH ×3 (05:53→21:11)
[2022-11-18] MEDS: METOPROLOL TARTRATE 50 MG TABLET (FP) NGT SCH (05:54)
[2022-11-18] MEDS: INSULIN SLIDING SCALE (NOVOLOG) 1 VIAL SQ SCH ×4 (06:52→21:01)
[2022-11-18] MEDS: AMINO ACIDS/PROTEIN HYDROLYS 30 ML LIQUID.PKT PO SCH (07:23)
[2022-11-18 08:12] LABS: HEMATOCRIT 27.5 % (32.4-45.2); HEMOGLOBIN 9.2 GM/dL (10.7-15.3); MCH 30.1 pg (25.7-33.7); MCHC 33.4 g/dl (32.0-36.0); MEAN CELL VOLUME 90.3 fl (80-96); MEAN PLT VOLUME 7.5 fl (7.5-11.1); PLATELET COUNT 135 10^3/uL (134-434); RBC 3.04 M/mm3 (3.60-5.2); RDW 14.5 % (11.6-15.6); WHITE BLOOD COUNT 10.1 K/mm3 (4.0-10.0)
[2022-11-18 08:34] LABS: CALCIUM 7.9 mg/dL (8.5-10.1); MAGNESIUM 1.9 mg/dL (1.8-2.4)
[2022-11-18 08:37] LABS: PHOSPHOROUS 4.1 mg/dL (2.5-4.9)
[2022-11-18 08:38] LABS: CREATININE 4.4 mg/dL (0.55-1.3)
[2022-11-18 08:39] LABS: BILIRUBIN,TOTAL 0.4 mg/dL (0.2-1)
[2022-11-18] MEDS: WATER IVPB SCH ×2 (09:05→21:14)
[2022-11-18] MEDS: ASPIRIN 81 MG CHEWABLE TABLETS NGT SCH (09:05)
[2022-11-18] MEDS: VALPROATE SODIUM IVPB SCH ×2 (09:05→21:14)
[2022-11-18] MEDS: PANTOPRAZOLE SODIUM 40 MG VIAL IVPUSH SCH (09:05)
[2022-11-18] MEDS: DEXTROSE 5% IVPB SCH ×2 (09:05→21:14)
[2022-11-18] MEDS: levETIRAcetam 500 MG/5 ML INJECTION VIAL IVPB SCH ×2 (09:05→21:10)
[2022-11-18 09:59] LABS: ANISOCYTOSIS 3+; MACROCYTOSIS 0
[2022-11-18] MEDS: hydrALAZINE HCL 20 MG/ML VIAL IVPUSH PRN ×2 (10:03→21:13)
[2022-11-18] MEDS: LABETALOL HCL 100 MG TABLET (FP) NGT SCH ×2 (10:25→17:41)
[2022-11-18] MEDS ORDERED: hydrALAZINE HCL 20 MG/ML VIAL IVPUSH ONE (10:30)
[2022-11-18] MEDS ORDERED: LORazepam 2 MG/ML SDV VIAL IVPUSH ONE (10:43)
[2022-11-18] MEDS: PROPOFOL 1,000,000 MCG/100 ML VIAL IVPUSH SCH (10:50)
[2022-11-18] MEDS: CHLORHEXIDINE GLUCONATE 4% CLEANSER FOR DECOLONIZATION TP SCH (21:14)
[2022-11-18] MEDS: ATORVASTATIN CA 40 MG TABLET (FP) NGT SCH (21:14)
[2022-11-19] MEDS: LABETALOL HCL 100 MG TABLET (FP) NGT SCH ×2 (00:18→05:53)
[2022-11-19] MEDS: PIPERACILLIN/TAZOB 2.25 GM 2.25 GM in DEXTROSE 5%-WATER - 50 ML IVPB SCH ×3 (01:27→17:36)
[2022-11-19] MEDS: HEPARIN NA (PORCINE) 5,000 UNITS/ML 1ML VIAL SQ SCH ×3 (05:53→21:02)
[2022-11-19] MEDS: INSULIN SLIDING SCALE (NOVOLOG) 1 VIAL SQ SCH ×4 (05:59→21:02)
[2022-11-19] MEDS: LABETALOL HCL 5 MG/1 ML (100MG/20 ML VIAL) IVPUSH PRN (06:04)
[2022-11-19 06:52] LABS: HEMATOCRIT 25.1 % (32.4-45.2); HEMOGLOBIN 8.5 GM/dL (10.7-15.3); MCH 30.4 pg (25.7-33.7); MCHC 33.8 g/dl (32.0-36.0); MEAN CELL VOLUME 90.1 fl (80-96); MEAN PLT VOLUME 7.7 fl (7.5-11.1); PLATELET COUNT 134 10^3/uL (134-434); RBC 2.79 M/mm3 (3.60-5.2); RDW 14.8 % (11.6-15.6); WHITE BLOOD COUNT 10.7 K/mm3 (4.0-10.0)
[2022-11-19 07:24] LABS: CALCIUM 7.7 mg/dL (8.5-10.1)
[2022-11-19 07:25] LABS: ALBUMIN 1.9 g/dl (3.4-5.0); BLOOD UREA NITROGEN 55.2 mg/dL (7-18); MAGNESIUM 2.2 mg/dL (1.8-2.4)
[2022-11-19 07:28] LABS: CREATININE 5.7 mg/dL (0.55-1.3); PHOSPHOROUS 5.7 mg/dL (2.5-4.9)
[2022-11-19 07:29] LABS: BILIRUBIN,TOTAL 0.4 mg/dL (0.2-1); TOT PROT 5.7 g/dl (6.4-8.2)
[2022-11-19] MEDS: AMINO ACIDS/PROTEIN HYDROLYS 30 ML LIQUID.PKT PO SCH (08:06)
[2022-11-19] MEDS: levETIRAcetam 500 MG/5 ML INJECTION VIAL IVPB SCH ×2 (09:07→21:02)
[2022-11-19] MEDS: ASPIRIN 81 MG CHEWABLE TABLETS NGT SCH (09:07)
[2022-11-19] MEDS: PANTOPRAZOLE SODIUM 40 MG VIAL IVPUSH SCH (09:08)
[2022-11-19] MEDS: DEXTROSE 5% IVPB SCH ×2 (09:56→21:02)
[2022-11-19] MEDS: WATER IVPB SCH ×2 (09:56→21:02)
[2022-11-19] MEDS: VALPROATE SODIUM IVPB SCH ×2 (09:56→21:02)
[2022-11-19 11:35] LABS: ANISOCYTOSIS 0; HELMET CELLS 0; HOWELL-JOLLY BODIES 0; MACROCYTOSIS 0; OVALOCYTE 0; ROULEAU 0; SICKELED CELLS 0; TARGET CELLS 0; TEAR DROP CELLS 0; TOXIC GRANULATION 0
[2022-11-19] MEDS: LABETALOL HCL 200 MG TABLET (FP) NGT SCH ×2 (12:17→17:36)
[2022-11-19] MEDS ORDERED: NIFEdipine 10 MG CAPSULE (FP) PO SCH (14:00)
[2022-11-19] MEDS: CHLORHEXIDINE GLUCONATE 4% CLEANSER FOR DECOLONIZATION TP SCH (21:02)
[2022-11-19] MEDS: ATORVASTATIN CA 40 MG TABLET (FP) NGT SCH (21:02)
[2022-11-20] MEDS: LABETALOL HCL 200 MG TABLET (FP) NGT SCH ×5 (00:06→23:53)
[2022-11-20] MEDS: PIPERACILLIN/TAZOB 2.25 GM 2.25 GM in DEXTROSE 5%-WATER - 50 ML IVPB SCH ×3 (01:00→17:06)
[2022-11-20] MEDS: HEPARIN NA (PORCINE) 5,000 UNITS/ML 1ML VIAL SQ SCH ×3 (06:00→21:20)
[2022-11-20] MEDS: INSULIN SLIDING SCALE (NOVOLOG) 1 VIAL SQ SCH ×4 (06:00→21:21)
[2022-11-20 06:43] LABS: HEMATOCRIT 25.3 % (32.4-45.2); HEMOGLOBIN 8.5 GM/dL (10.7-15.3); MCH 30.2 pg (25.7-33.7); MCHC 33.4 g/dl (32.0-36.0); MEAN CELL VOLUME 90.2 fl (80-96); MEAN PLT VOLUME 7.5 fl (7.5-11.1); PLATELET COUNT 142 10^3/uL (134-434); RDW 14.7 % (11.6-15.6); WHITE BLOOD COUNT 11.3 K/mm3 (4.0-10.0)
[2022-11-20 07:03] LABS: ALBUMIN 1.9 g/dl (3.4-5.0); BLOOD UREA NITROGEN 71.9 mg/dL (7-18); CALCIUM 7.8 mg/dL (8.5-10.1); MAGNESIUM 2.1 mg/dL (1.8-2.4)
[2022-11-20 07:05] LABS: CREATININE 6.8 mg/dL (0.55-1.3)
[2022-11-20 07:06] LABS: PHOSPHOROUS 6.4 mg/dL (2.5-4.9)
[2022-11-20 07:07] LABS: BILIRUBIN,TOTAL 0.4 mg/dL (0.2-1); TOT PROT 5.8 g/dl (6.4-8.2)
[2022-11-20] MEDS: AMINO ACIDS/PROTEIN HYDROLYS 30 ML LIQUID.PKT PO SCH (07:16)
[2022-11-20] MEDS ORDERED: SODIUM CHLORIDE 250 ML IV PRN (08:11)
[2022-11-20] MEDS: PROPOFOL 1,000,000 MCG/100 ML VIAL IVPUSH SCH ×2 (09:07→18:18)
[2022-11-20] MEDS ORDERED: EPOETIN ALFA-EPBX 10,000 UNIT/ML VIAL IVPUSH ONE (09:30)
[2022-11-20] MEDS: WATER IVPB SCH ×2 (10:59→21:20)
[2022-11-20] MEDS: ASPIRIN 81 MG CHEWABLE TABLETS NGT SCH (10:59)
[2022-11-20] MEDS: DEXTROSE 5% IVPB SCH ×2 (10:59→21:20)
[2022-11-20] MEDS: PANTOPRAZOLE SODIUM 40 MG VIAL IVPUSH SCH (10:59)
[2022-11-20] MEDS: VALPROATE SODIUM IVPB SCH ×2 (10:59→21:20)
[2022-11-20] MEDS: levETIRAcetam 500 MG/5 ML INJECTION VIAL IVPB SCH ×2 (10:59→21:20)
[2022-11-20] MEDS: LABETALOL HCL 5 MG/1 ML (100MG/20 ML VIAL) IVPUSH PRN (12:58)
[2022-11-20] MEDS: hydrALAZINE HCL 20 MG/ML VIAL IVPUSH PRN ×2 (14:19→20:41)
[2022-11-20] MEDS: CHLORHEXIDINE GLUCONATE 4% CLEANSER FOR DECOLONIZATION TP SCH (21:20)
[2022-11-20] MEDS: ATORVASTATIN CA 40 MG TABLET (FP) NGT SCH (21:21)
[2022-11-21] MEDS: PIPERACILLIN/TAZOB 2.25 GM 2.25 GM in DEXTROSE 5%-WATER - 50 ML IVPB SCH (01:34)
[2022-11-21] MEDS: HEPARIN NA (PORCINE) 5,000 UNITS/ML 1ML VIAL SQ SCH ×3 (05:39→21:37)
[2022-11-21] MEDS: LABETALOL HCL 200 MG TABLET (FP) NGT SCH ×4 (05:39→23:04)
[2022-11-21] MEDS: INSULIN SLIDING SCALE (NOVOLOG) 1 VIAL SQ SCH ×4 (06:19→21:41)
[2022-11-21 07:34] LABS: HEMATOCRIT 26.2 % (32.4-45.2); HEMOGLOBIN 8.6 GM/dL (10.7-15.3); MCH 29.8 pg (25.7-33.7); MCHC 32.7 g/dl (32.0-36.0); MEAN PLT VOLUME 7.6 fl (7.5-11.1); PLATELET COUNT 160 10^3/uL (134-434); RBC 2.88 M/mm3 (3.60-5.2); RDW 15.2 % (11.6-15.6); WHITE BLOOD COUNT 11.6 K/mm3 (4.0-10.0)
[2022-11-21 07:58] LABS: CALCIUM 8.4 mg/dL (8.5-10.1)
[2022-11-21 07:59] LABS: ALBUMIN 2.2 g/dl (3.4-5.0); MAGNESIUM 2.2 mg/dL (1.8-2.4)
[2022-11-21 08:02] LABS: CREATININE 4.8 mg/dL (0.55-1.3); PHOSPHOROUS 4.4 mg/dL (2.5-4.9)
[2022-11-21 08:03] LABS: BILIRUBIN,TOTAL 0.3 mg/dL (0.2-1); TOT PROT 6.1 g/dl (6.4-8.2)
[2022-11-21 08:23] LABS: BLOOD UREA NITROGEN 41.6 mg/dL (7-18)
[2022-11-21] MEDS: AMINO ACIDS/PROTEIN HYDROLYS 30 ML LIQUID.PKT PO SCH (08:28)
[2022-11-21 08:49] LABS: ANISOCYTOSIS 0; HELMET CELLS 0; HOWELL-JOLLY BODIES 0; MACROCYTOSIS 0; OVALOCYTE 0; ROULEAU 0; SICKELED CELLS 0; TARGET CELLS 0; TEAR DROP CELLS 0; TOXIC GRANULATION 0
[2022-11-21] MEDS ORDERED: KCL 10 MEQ IVPB 10 MEQ/100 ML INFUS.BAG IVPB SCH (09:15)
[2022-11-21] MEDS: VALPROATE SODIUM IVPB SCH ×2 (09:19→22:17)
[2022-11-21] MEDS: WATER IVPB SCH ×2 (09:19→22:17)
[2022-11-21] MEDS: DEXTROSE 5% IVPB SCH ×2 (09:19→22:17)
[2022-11-21] MEDS: levETIRAcetam 500 MG/5 ML INJECTION VIAL IVPB SCH ×2 (09:54→21:38)
[2022-11-21] MEDS: PANTOPRAZOLE SODIUM 40 MG VIAL IVPUSH SCH (09:54)
[2022-11-21] MEDS ORDERED: levETIRAcetam 500 MG/5 ML INJECTION VIAL IVPB ONE (11:30)
[2022-11-21] MEDS ORDERED: SODIUM CHLORIDE 250 ML IV PRN (13:33)
[2022-11-21] MEDS: PROPOFOL 1,000,000 MCG/100 ML VIAL IVPUSH SCH (15:40)
[2022-11-21] MEDS: CHLORHEXIDINE GLUCONATE 4% CLEANSER FOR DECOLONIZATION TP SCH (21:38)
[2022-11-21] MEDS: ATORVASTATIN CA 40 MG TABLET (FP) NGT SCH (21:41)
[2022-11-22] MEDS: LABETALOL HCL 200 MG TABLET (FP) NGT SCH ×4 (05:17→23:13)
[2022-11-22] MEDS: HEPARIN NA (PORCINE) 5,000 UNITS/ML 1ML VIAL SQ SCH ×3 (05:17→21:19)
[2022-11-22] MEDS: hydrALAZINE HCL 20 MG/ML VIAL IVPUSH PRN ×2 (05:25→20:21)
[2022-11-22] MEDS: INSULIN SLIDING SCALE (NOVOLOG) 1 VIAL SQ SCH ×2 (06:55→11:24)
[2022-11-22 07:14] LABS: HEMATOCRIT 28.1 % (32.4-45.2); MCH 29.6 pg (25.7-33.7); MCHC 32.2 g/dl (32.0-36.0); MEAN CELL VOLUME 91.9 fl (80-96); MEAN PLT VOLUME 6.9 fl (7.5-11.1); PLATELET COUNT 180 10^3/uL (134-434); RBC 3.06 M/mm3 (3.60-5.2); RDW 15.4 % (11.6-15.6); WHITE BLOOD COUNT 11.1 K/mm3 (4.0-10.0)
[2022-11-22 07:36] LABS: CALCIUM 8.3 mg/dL (8.5-10.1)
[2022-11-22 07:37] LABS: ALBUMIN 2.4 g/dl (3.4-5.0); BLOOD UREA NITROGEN 53.8 mg/dL (7-18); MAGNESIUM 2.2 mg/dL (1.8-2.4)
[2022-11-22 07:40] LABS: CREATININE 6.3 mg/dL (0.55-1.3); PHOSPHOROUS 5.8 mg/dL (2.5-4.9)
[2022-11-22 07:42] LABS: BILIRUBIN,TOTAL 0.4 mg/dL (0.2-1); TOT PROT 6.5 g/dl (6.4-8.2)
[2022-11-22] MEDS: AMINO ACIDS/PROTEIN HYDROLYS 30 ML LIQUID.PKT PO SCH (09:42)
[2022-11-22] MEDS: ASPIRIN 81 MG CHEWABLE TABLETS NGT SCH (09:42)
[2022-11-22] MEDS: PANTOPRAZOLE SODIUM 40 MG VIAL IVPUSH SCH (11:45)
[2022-11-22] MEDS: levETIRAcetam 500 MG/5 ML INJECTION VIAL IVPB SCH ×2 (11:45→21:18)
[2022-11-22] MEDS: WATER IVPB SCH ×2 (11:46→21:47)
[2022-11-22] MEDS: VALPROATE SODIUM IVPB SCH ×2 (11:46→21:47)
[2022-11-22] MEDS: DEXTROSE 5% IVPB SCH ×2 (11:46→21:47)
[2022-11-22] MEDS: PROPOFOL 1,000,000 MCG/100 ML VIAL IVPUSH SCH (20:11)
[2022-11-22] MEDS: CHLORHEXIDINE GLUCONATE 4% CLEANSER FOR DECOLONIZATION TP SCH (21:19)
[2022-11-22] MEDS: ATORVASTATIN CA 40 MG TABLET (FP) NGT SCH (21:19)
[2022-11-23] MEDS: LABETALOL HCL 200 MG TABLET (FP) NGT SCH (05:39)
[2022-11-23] MEDS: HEPARIN NA (PORCINE) 5,000 UNITS/ML 1ML VIAL SQ SCH (05:44)
[2022-11-23 06:28] VITALS: TEMP 98.3
[2022-11-23] MEDS: levETIRAcetam 500 MG/5 ML INJECTION VIAL IVPB SCH (09:51)
[2022-11-23] MEDS: AMINO ACIDS/PROTEIN HYDROLYS 30 ML LIQUID.PKT PO SCH (09:51)
[2022-11-23] MEDS: PANTOPRAZOLE SODIUM 40 MG VIAL IVPUSH SCH (09:51)
[2022-11-23] MEDS: ASPIRIN 81 MG CHEWABLE TABLETS NGT SCH (09:51)
[2022-11-23] MEDS: MORPHINE SULFATE/0.9% NACL/PF 100 MG/100 ML BAG IVPB SCH (13:07)
[2022-11-23] MEDS: LORazepam 2 MG/ML SDV VIAL IVPUSH PRN ×2 (13:17→16:00)
[2022-11-23 16:50] VITALS: BP 167/57
[2022-11-23] MEDS ORDERED: SCOPOLAMINE HYDROBROMIDE 1 PATCH PATCH.TD72 TD SCH (23:30)
[2022-11-24] MEDS: MORPHINE SULFATE/0.9% NACL/PF 100 MG/100 ML BAG IVPB SCH (12:15)
[2022-11-25] MEDS: MORPHINE SULFATE/0.9% NACL/PF 100 MG/100 ML BAG IVPB SCH (12:02)
[2022-11-25 23:51] VITALS: PULSE 59; RESP 10
== END 2022-11-25 23:10 | disposition expired | DRG 130 ==
LOC: JER 08:34 → JERBED 09:03 → JICU 22:24
PROVIDERS: ADMIT Internal Medicine Pulmonary Disease; ATTEND Internal Medicine Pulmonary Disease
PROC: 5A1955Z Respiratory Ventilation, Greater than 96 Consecutive Hours (ICD-10-PCS; principal; 2022-11-12)
PROC: 0BH17EZ Insertion of Endotracheal Airway into Trachea, Via Natural or Artificial Opening (ICD-10-PCS; 2022-11-12)
PROC: 05HN33Z Insertion of Infusion Device into Left Internal Jugular Vein, Percutaneous Approach (ICD-10-PCS; 2022-11-12)
PROC: 5A12012 Performance of Cardiac Output, Single, Manual (ICD-10-PCS; 2022-11-12)
PROC: 5A1D70Z Performance of Urinary Filtration, Intermittent, Less than 6 Hours Per Day (ICD-10-PCS; 2022-11-17)
DX: J96.01 Acute respiratory failure with hypoxia (principal); I21.4 Non-ST elevation (NSTEMI) myocardial infarction; I49.01 Ventricular fibrillation; G93.1 Anoxic brain damage, not elsewhere classified; I50.33 Acute on chronic diastolic (congestive) heart failure; J69.0 Pneumonitis due to inhalation of food and vomit; I46.9 Cardiac arrest, cause unspecified; I13.2 Hypertensive heart and chronic kidney disease with heart failure and with stage 5 chronic kidney disease, or end stage renal disease; N18.6 End stage renal disease; G40.909 Epilepsy, unspecified, not intractable, without status epilepticus; F03.90 Unspecified dementia, unspecified severity, without behavioral disturbance, psychotic disturbance, mood disturbance, and anxiety; E78.5 Hyperlipidemia, unspecified; K21.9 Gastro-esophageal reflux disease without esophagitis; E11.9 Type 2 diabetes mellitus without complications; E87.5 Hyperkalemia
CPT/HCPCS: 0241U-QW; 36415; 36600; 70450-TC; 71045-TC-FY; 74019-TC-FY; 80048; 80053; 80164; 80177; 81003; 82272; 82550; 82553; 82803; 82962; 83605; 83690; 83735; 83880; 84100; 84439; 84443; 84484; 85025; 85027; 85610; 85730; 86850; 86900; 86901; 87040; 87070; 87086; 87205; 87340; 87517; 93005; 93010; 93306-TC; 94002; 95816; 99291; J1644; Q5106